=== PATIENT | female | born 1990 | race Caucasian/White ===

== ENCOUNTER 2017-09-01 06:47 | Day surgery (SDC) | payer BC ==
[~2017-09-01 06:47] MED LIST: Lactated Ringers 1,000 ML IV SCH; Lidocaine 1%/Sod Bicarbonate in NS 8.4% 1 ML Syringe PRN; Sodium Chloride 0.9% 10 ML Syringe FLUSH PRN
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
[2017-09-01] MEDS ORDERED: Lidocaine 1% 4 ML ONE (07:20)
[2017-09-01] MEDS ORDERED: Ketorolac 30 MG/ML SDV ONE (07:20)
[2017-09-01] MEDS ORDERED: Dexamethasone 4 MG/ML SDV ONE (07:20)
[2017-09-01] MEDS ORDERED: Ondansetron 4 MG/2 ML SDV ONE (07:20)
[2017-09-01] MEDS ORDERED: ceFAZolin 1 GM Vial ONE (07:20)
[2017-09-01] MEDS ORDERED: fentaNYL 100 MCG/2 ML SDV ONE (07:21)
[2017-09-01] MEDS ORDERED: Midazolam 1 MG/ML 2 ML SDV ONE (07:21)
[2017-09-01] MEDS ORDERED: Propofol 200 MG/20 ML SDV ONE ×2 (07:21→08:10)
[2017-09-01] MEDS ORDERED: Ondansetron 4 MG/2 ML SDV IVPUSH PRN ×2 (08:11→10:01)
[2017-09-01] MEDS ORDERED: fentaNYL 100 MCG/2 ML SDV IVPUSH PRN (08:11)
[2017-09-01] MEDS ORDERED: Lactated Ringers 1,000 ML ONE (08:21)
--- NOTE | 2017-09-01 08:40 | PCM.POSTAN ---
POST ANESTHESIA ASSESSMENT - MENTAL STATUS Mental Status: Alert - VITAL SIGNS Pulse Rate: 91 SaO2: 96 Resp Rate: 13 Blood Pressure: 105/69 Temperature: 36.5 C - RESPIRATORY Respiratory Status: Respiratory Rate WNL, Airway Patent, O2 Saturation Stable, Supplemental Oxygen - CARDIOVASCULAR CV Status: Pulse Rate WNL, Blood Pressure Stable - GASTROINTESTINAL GI Status: No Symptoms - POST OP HYDRATION Hydration Status: Adequate & Stable
--- NOTE | 2017-09-01 09:12 | PCM48HPAN ---
Post Anesthesia Note - EVALUATION WITHIN 48HRS OF ANESTHETIC Vital Signs in Normal Range: Yes Patient Participated in Evaluation: Yes Respiratory Function Stable: Yes Airway Patent: Yes Cardiovascular Function Stable: Yes Hydration Status Stable: Yes Pain Control Satisfactory: Yes Nausea and Vomiting Control Satisfactory: Yes Mental Status Recovered: Yes
[2017-09-01 09:38] VITALS: BP 129/74
--- NOTE | 2017-09-01 10:08 | PCM.OPNOTE ---
- General Post-Op/Procedure Note Date of Surgery/Procedure: 09/01/17 Operative Procedure(s): Hysteroscopy, dilation and curettage Findings: Uterus sounded to approximately 10-1/2 cm. There were at least 2 small polypoid structures in the left cornual area of the uterus. There was a lot of wispy type of endometrial projections throughout the uterus. Both the right and left tubal ostia were visualized. Uterus is upper limits normal size, freely mobile on bimanual exam. No adnexal abnormalities were noted. Pre Op Diagnosis: 1. Menorrhagia. 2. Abnormal uterine bleeding. 3. Irregular uterine bleeding. 4. Thickened endometrium Post-Op Diagnosis: Same Anesthesia Technique: General LMA Primary Surgeon: Shaquille Mccann Fluid Replacement, Intraop: 600 EBL in mLs: 5 Complications: None Condition: Good Free Text/Narrative:: Intake & Output 08/31/17 09/01/17 09/01/17 22:59 06:59 14:59 Intake Total 350 Balance 350 Surgery duration 11 minutes Procedure: The patient is taking the operative placed in a supine position on the operating table. She received 2 g of Ancef preoperatively for infection prophylaxis and had sequential compression stockings in place for DVT prophylaxis. Patient was given general anesthesia and an LMA was placed for ventilation. She is placed in a dorsal lithotomy position and prepped and draped in usual fashion. An exam under anesthesia was performed. Findings as described above. A weighted speculum was placed in the vagina. Cervix is visualized. It was grasped anteriorly with a single-tooth tenaculum. Uterus was then sounded to a depth of 10-1/2 cm. It is from the anterior, mid position. The cervix was dilated to entrance of a 5 mm 30 rigid hysteroscope. This was placed without problem and normal saline was used as a distending medium. The perimetria cavity was visualized. Findings as described above. Decision was made to proceed with polypectomy. Polyp forceps was introduced and polyps were removed. After this is performed a D&C was performed. Moderate amount tissue was obtained. Minimal bleeding was encountered. Hysteroscope was then placed back into the endometrial cavity. Blood was flushed out and the findings were consistent relatively normal-appearing endometrial cavity. At this point the scope was removed. The vagina was cleared of old blood, the cervix was released and the weighted speculum was removed. Patient was returned to supine position and awakened from general anesthesia. She tolerated the procedure well and operating room in good condition.
== END 2017-09-01 10:20 | disposition home or self-care (01) ==
LOC: JD.SDS 06:47
PROVIDERS: ATTEND Obstetrics & Gynecology
DX: N84.0 Polyp of corpus uteri (principal); N71.1 Chronic inflammatory disease of uterus; Z88.8 Allergy status to other drugs, medicaments and biological substances; Z91.018 Allergy to other foods; Z91.09 Other allergy status, other than to drugs and biological substances; J30.81 Allergic rhinitis due to animal (cat) (dog) hair and dander; F32.89 Other specified depressive episodes; K21.9 Gastro-esophageal reflux disease without esophagitis; Z79.84 Long term (current) use of oral hypoglycemic drugs; Z79.899 Other long term (current) drug therapy; Z98.890 Other specified postprocedural states
CPT/HCPCS: 58558; 81025; J0690; J1100; J1885; J2250; J2405; J3010; J7120; 00952; J2704

== ENCOUNTER 2019-09-27 09:24 | Day surgery (SDC) | payer BC ==
[~2019-09-27 09:24] MED LIST changes: +FLU Vacc QS2019-20(6MOS+)/PF 60 MCG/0.5 ML SYRINGE IM ONE; +Lidocaine 1%/Sod Bicarbonate in NS 8.4% 1 ML Syringe IDERM PRN; -Lidocaine 1%/Sod Bicarbonate in NS 8.4% 1 ML Syringe PRN
[2019-09-27] MEDS ORDERED: Lidocaine 1% 4 ML ONE (09:40)
[2019-09-27] MEDS ORDERED: Ondansetron 4 MG/2 ML SDV ONE (09:40)
[2019-09-27] MEDS ORDERED: Midazolam 1 MG/ML 2 ML SDV ONE (09:41)
[2019-09-27] MEDS ORDERED: fentaNYL 250 MCG/5 ML SDV ONE (09:41)
[2019-09-27] MEDS ORDERED: Propofol 200 MG/20 ML SDV ONE (09:41)
--- NOTE | 2019-09-27 09:57 | PCM.PREANE ---
Preanesthetic Assessment - Procedure Proposed Procedure: d and c - Anesthesia/Transfusion/Family Hx Anesthesia History: Prior Anesthesia Without Reaction Family History of Anesthesia Reaction: No Transfusion History: No Prior Transfusion(s) Intubation History: Unknown - Review of Systems General: No Symptoms Pulmonary: Cough (has a cold- congested cough) Cardiovascular: No Symptoms Gastrointestinal: No Symptoms Neurological: No Symptoms Other: Reports: Anxiety - Physical Assessment NPO Status Date: 09/26/19 NPO Status Time: 20:30 Vital Signs: Last Vital Signs Temp 98.7 F 09/27/19 09:30 Pulse 107 H 09/27/19 09:30 Resp 16 09/27/19 09:30 BP 120/76 09/27/19 09:30 Pulse Ox 97 09/27/19 09:30 Height: 5 ft 8 in Weight: 88.451 kg ASA Class: 2 Mental Status: Alert & Oriented x3 Airway Class: Mallampati = 1 Dentition: Reports: Normal Dentition Thyro-Mental Finger Breadths: 3 Mouth Opening Finger Breadths: 3 ROM/Head Extension: Full Lungs: Clear to Auscultation, Normal Respiratory Effort - Allergies Allergies/Adverse Reactions: Allergies Allergy/AdvReac Type Severity Reaction Status Date / Time hydromorphone HCl Allergy Severe Anaphylactic Verified 09/26/19 11:24 [From Dilaudid] Shock adhesive Allergy Hives Verified 09/26/19 11:24 cat dander Allergy Swelling Verified 09/26/19 11:24 garlic Allergy Other Verified 09/26/19 11:24 metals Allergy Rash Uncoded 09/26/19 11:24 - Blood Blood Available: No - Acknowledgements Anesthesia Type Planned: General Anesthesia, MAC Pt an Appropriate Candidate for the Planned Anesthesia: Yes Alternatives and Risks of Anesthesia Discussed w Pt/Guardian: Yes Pt/Guardian Understands and Agrees with Anesthesia Plan: Yes PreAnesthesia Questionnaire HEENT History: Reports: Allergic Rhinitis Other HEENT History: wears glasses Other Cardiovascular History: racing heart, tachycardia-usually tachy rate Respiratory History: Reports: None (has a cold now- 3 weeks ago), Other (See Below) Gastrointestinal History: Reports: GERD, Hemorrhoids Other Gastrointestinal History: Issues with gallbladder. Patient states diarrhea is from the Metformin. 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 Other OB/BYN History: menorrhagia, irregular menses, thickened endometrium, cervix abnormality, dysmenorrhea, polycystic ovaries, infertility, puerperal endometriosis, diagnostic laparoscopy Musculoskeletal History: Reports: Arthritis, Other (See Below) Other Musculoskeletal History: neck arthritis Neurological History: Reports: Headaches, Chronic Psychiatric History: Reports: Anxiety, Depression, Other (See Below) Other Psychiatric History: fatigue Endocrine/Metabolic History: Reports: None Hematologic History: Reports: None Immunologic History: Reports: None Oncologic (Cancer) History: Reports: None Dermatologic History: Reports: Other (See Below) Other Dermatologic History: brittle nails - Past Surgical History Head Surgeries/Procedures: Reports: None HEENT Surgical History: Reports: Myringotomy w Tube(s), Oral Surgery Cardiovascular Surgical History: Reports: None Respiratory Surgical History: Reports: None GI Surgical History: Reports: EGD Female Surgical History: Reports: D&C, Other (See Below) (laparaoscopy) Male Surgical History: Reports: None Endocrine Surgical History: Reports: None Neurological Surgical History: Reports: None Musculoskeletal Surgical History: Reports: None Oncologic Surgical History: Reports: None Dermatological Surgical History: Reports: None - SUBSTANCE USE Smoking Status *Q: Never Smoker Tobacco Use Within Last Twelve Months: No Second Hand Smoke Exposure: No Days Per Week of Alcohol Use: 0 Recreational Drug Use History: No - HOME MEDS Home Medications: Home Meds Vits #93/Iron Fum/FA [ Formula Tablet] 1 tab PO DAILY 08/31/17 [History] metFORMIN HCl [Metformin HCl] 500 mg PO TID 08/31/17 [History] - CURRENT (IN HOUSE) MEDS Current Meds: Current Medications Lactated Ringer's (Ringers, Lactated) 1,000 mls @ 125 mls/hr IV ASDIRECTED ROBBI Stop: 09/27/19 23:00 Lidocaine/Sodium Bicarbonate (Buffered Lidocaine 1% In Ns 8.4%) 0.25 ml IDERM ONETIME PRN PRN Reason: Prior to IV Start Stop: 09/27/19 18:00 Sodium Chloride (Saline Flush) 10 ml FLUSH ASDIRECTED PRN PRN Reason: Keep Vein Open Stop: 09/27/19 18:00 Discontinued Medications Fentanyl (Sublimaze) Confirm Administered Dose 250 mcg .ROUTE .STK-MED ONE Stop: 09/27/19 09:42 Lidocaine HCl (Xylocaine-Mpf 1%) Confirm Administered Dose 4 mls @ as directed .ROUTE .STK-MED ONE Stop: 09/27/19 09:41 Influenza Virus Vaccine (Pharmacy To Dose - Influenza Vaccine) 1 each IM ONETIME ROBBI Influenza Virus Vaccine (Pharmacy To Dose - Influenza Vaccine) 1 each IM ONETIME ROBBI Influenza Virus Vaccine (Fluzone Quad 6630-2168 Syringe) 60 mcg IM .ONCE ONE Stop: 09/27/19 09:01 Midazolam HCl (Versed 1 Mg/Ml) Confirm Administered Dose 2 mg .ROUTE .STK-MED ONE Stop: 09/27/19 09:42 Ondansetron HCl (Zofran) Confirm Administered Dose 4 mg .ROUTE .STK-MED ONE Stop: 09/27/19 09:41 Propofol (Diprivan 20 Ml) Confirm Administered Dose 200 mg .ROUTE .STK-MED ONE Stop: 09/27/19 09:42
[2019-09-27] MEDS ORDERED: Albuterol 0.083% 2.5 MG/3 ML Neb Soln NEB ONE (10:32)
[2019-09-27] MEDS ORDERED: Ibuprofen 600 MG Tab PO PRN (11:52)
--- NOTE | 2019-09-27 11:56 | PCM.OPNOTE ---
- General Post-Op/Procedure Note Date of Surgery/Procedure: 09/27/19 Operative Procedure(s): Dilation and suction curettage Findings: Uterus sounded to 8.5 cm. Tissue within the endometrial cavity is consistent with products of conception. No other abnormalities are noted. Pre Op Diagnosis: Missed Post-Op Diagnosis: Same Anesthesia Technique: [facility] [place] Primary Surgeon: Shaquille Mccann Secondary Surgeon: Mika Randolph Anesthesia Provider: Zaheer Ayala Pathology: Endometrial curettings consistent with products of conception EBL in mLs: 25 Complications: None Condition: Good Free Text/Narrative:: Surgery duration: 7 minutes The patient was taken to the operating room and placed in a supine position operating table. She received 2 g of Ancef preoperatively for infection prophylaxis and had sequential compression stockings in place for DVT prophylaxis. After adequate general LMA anesthesia patient was placed in a dorsal lithotomy position. A weighted speculum was placed in the vagina. Cervix is found to be dilated to approximately 7 mm. Uterus was sounded to approximately 8.5 cm. It was found to be anterior and mid position. An 7 mm suction curette was then introduced in routine fashion the endometrial cavity was evacuated. Moderate amount tissue was obtained. Findings consistent with products of conception. A medium size sharp curet was introduced and very careful fashion the endometrial cavity was curetted. It was be clear of any further tissue. The suction curette was then reintroduced and small and blood was removed. No further tissue was removed. This point the D&C was discontinued. The single-toothed tenaculum used to stabilize the anterior lip the cervix was removed. Blood was removed from the vagina with a stick sponge and the weighted speculum was removed from the vagina. The patient was awakened from MAC anesthesia. The patient was discharged from the operating room in good condition.
[2019-09-27] MEDS ORDERED: fentaNYL 100 MCG/2 ML SDV IVPUSH PRN (12:01)
--- NOTE | 2019-09-27 12:03 | PCM48HPAN ---
Post Anesthesia Note - EVALUATION WITHIN 48HRS OF ANESTHETIC Vital Signs in Normal Range: Yes Patient Participated in Evaluation: Yes Respiratory Function Stable: Yes Airway Patent: Yes Cardiovascular Function Stable: Yes Hydration Status Stable: Yes Pain Control Satisfactory: Yes Nausea and Vomiting Control Satisfactory: Yes Mental Status Recovered: Yes Vital Signs: Last Vital Signs Temp 98.7 F 09/27/19 09:30 Pulse 107 H 09/27/19 09:30 Resp 16 09/27/19 09:30 BP 120/76 09/27/19 09:30 Pulse Ox 100 09/27/19 10:33 1156 89 16 98.9 99% 119/86
[2019-09-27 12:28] VITALS: BP 110/67; PULSE 85
== END 2019-09-27 12:41 | disposition home or self-care (01) ==
LOC: JD.SDS 09:24
PROVIDERS: ATTEND Obstetrics & Gynecology
DX: O02.1 Missed abortion (principal); E28.2 Polycystic ovarian syndrome; K21.9 Gastro-esophageal reflux disease without esophagitis; F41.9 Anxiety disorder, unspecified; F32.9 Major depressive disorder, single episode, unspecified; M19.90 Unspecified osteoarthritis, unspecified site; Z88.5 Allergy status to narcotic agent; Z91.02 Food additives allergy status; Z91.048 Other nonmedicinal substance allergy status; Z91.09 Other allergy status, other than to drugs and biological substances; Z79.84 Long term (current) use of oral hypoglycemic drugs; Z79.899 Other long term (current) drug therapy
CPT/HCPCS: 36415; 59820; 85025; 94640; J2001; J2250; J2405; J2704; J3010; J7120; 01965

== ENCOUNTER 2021-02-11 07:08 | Inpatient (IN) | payer BC ==
[2021-02-11] MEDS ORDERED: ePHEDrine 50 MG/ML SDV IVPUSH PRN ×3 (07:35→22:18)
[2021-02-11] MEDS ORDERED: fentaNYL 100 MCG/2 ML SDV EPIDUR PRN (07:35)
[2021-02-11] MEDS ORDERED: Ondansetron 4 MG/2 ML SDV IVPUSH PRN ×2 (07:35→19:29)
--- NOTE | 2021-02-11 07:37 | PCM.PREANE ---
Preanesthetic Assessment - Procedure Proposed Procedure: Epidural - Anesthesia/Transfusion/Family Hx Anesthesia History: Prior Anesthesia Without Reaction Family History of Anesthesia Reaction: No Transfusion History: No Prior Transfusion(s) Intubation History: Unknown - Review of Systems General: No Symptoms Pulmonary: No Symptoms Cardiovascular: No Symptoms (history of increased HR. runs 120's) Gastrointestinal: No Symptoms (GERD), Diarrhea Neurological: No Symptoms (chronic lower back pain /10.), Headache (history of migraines) Other: Reports: Sinus Problem (allergic rhinitis), Neck Pain (Neck arthritis history of:), Depression, Anxiety - Physical Assessment NPO Status Date: 02/11/21 NPO Status Time: 06:45 Vital Signs: HR:119 Sat:99% B/P:120/78 Temp:98.3 Resp:20 Height: 1.73 m Weight: 100.153 kg ASA Class: 2 Mental Status: Alert & Oriented x3 Airway Class: Mallampati = 2 Dentition: Reports: Normal Dentition, Caries Thyro-Mental Finger Breadths: 3 Mouth Opening Finger Breadths: 3 ROM/Head Extension: Full Lungs: Clear to Auscultation, Normal Respiratory Effort Cardiovascular: Regular Rate, Regular Rhythm, No Murmurs - Lab Values: All labs reviewed and noted and within acceptable ranges to proceed with epidural if desired. - Allergies Allergies/Adverse Reactions: Allergies Allergy/AdvReac Type Severity Reaction Status Date / Time hydromorphone HCl Allergy Severe Anaphylactic Verified 09/26/19 11:24 [From Dilaudid] Shock adhesive Allergy Hives Verified 09/26/19 11:24 cat dander Allergy Swelling Verified 09/26/19 11:24 garlic Allergy Other Verified 09/26/19 11:24 metals Allergy Rash Uncoded 09/26/19 11:24 - Anesthesia Plan Pre-Op Medication Ordered: None - Acknowledgements Anesthesia Type Planned: Epidural Pt an Appropriate Candidate for the Planned Anesthesia: Yes Alternatives and Risks of Anesthesia Discussed w Pt/Guardian: Yes Pt/Guardian Understands and Agrees with Anesthesia Plan: Yes PreAnesthesia Questionnaire HEENT History: Reports: Allergic Rhinitis Other HEENT History: wears glasses Other Cardiovascular History: racing heart, tachycardia-usually tachy rate Respiratory History: Reports: None (has a cold now- 3 weeks ago), Other (See Below) Gastrointestinal History: Reports: GERD, Hemorrhoids Other Gastrointestinal History: Issues with gallbladder. Patient states diarrhea is from the Metformin. 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 Other OB/BYN History: menorrhagia, irregular menses, thickened endometrium, cervix abnormality, dysmenorrhea, polycystic ovaries, infertility, puerperal endometriosis, diagnostic laparoscopy Musculoskeletal History: Reports: Arthritis, Other (See Below) Other Musculoskeletal History: neck arthritis Neurological History: Reports: Headaches, Chronic Psychiatric History: Reports: Anxiety, Depression, Other (See Below) Other Psychiatric History: fatigue Endocrine/Metabolic History: Reports: None Hematologic History: Reports: None Immunologic History: Reports: None Oncologic (Cancer) History: Reports: None Dermatologic History: Reports: Other (See Below) Other Dermatologic History: brittle nails - Past Surgical History Head Surgeries/Procedures: Reports: None HEENT Surgical History: Reports: Myringotomy w Tube(s), Oral Surgery Cardiovascular Surgical History: Reports: None Respiratory Surgical History: Reports: None GI Surgical History: Reports: EGD Female Surgical History: Reports: D&C, Other (See Below) (laparaoscopy) Male Surgical History: Reports: None Endocrine Surgical History: Reports: None Neurological Surgical History: Reports: None Musculoskeletal Surgical History: Reports: None Oncologic Surgical History: Reports: None Dermatological Surgical History: Reports: None - HOME MEDS Home Medications: Home Meds Vits #93/Iron Fum/FA [ Formula Tablet] 1 tab PO DAILY 08/31/17 [History] Ibuprofen [Motrin] 600 mg PO Q4H PRN tablet 09/27/19 [Rx]
[2021-02-11] MEDS ORDERED: Sodium Chloride 0.9% 10 ML Syringe FLUSH PRN ×2 (07:39→19:07)
[2021-02-11] MEDS ORDERED: Nalbuphine 10 MG/1 ML Vial IVPUSH PRN (07:39)
[2021-02-11] MEDS ORDERED: Lidocaine 1% 50 ML MDV INJECT PRN (07:39)
[2021-02-11] MEDS ORDERED: Oxytocin/Lactated Ringers 10 UNIT/1,000 ML BAG IV SCH ×4 (07:45→22:18)
[2021-02-11] MEDS ORDERED: Bupivacaine/fentaNYL/NS 100 ML Bag EPIDUR SCH (07:45)
--- NOTE | 2021-02-11 08:01 | PCM.LDHP ---
<Riccardo Guillory - Last Filed: 02/11/21 08:53> L&D History of Present Illness - General Date of Service: 02/11/21 Admit Problem/Dx: Patient Status Order with Admit Dx/Problem 02/11/21 07:39 Patient Status [ADT] Routine Admission Diagnosis/Problem Admission Diagnosis/Problem Source of Information: Patient History Limitations: Reports: No Limitations - History of Present Illness Introduction:: Patient is a 30 year old GBS negative x 1 who present today at 39- 0 weeks gestational age (NOY 02/18/21) for induction of labor. She denies any regular contractions, leaking of fluid, vaginal bleeding or changes in her discharge. She reports good movement. Present Illness Comments:: Patient is a 30 year old GBS negative x 1 who present today at 39- 0 weeks gestational age (NOY 02/18/21) based on first trimester US for induction of labor. Patient has received routine care with Dr. Mccann,. She was evaluated on 02/08/21 for tachycardia on routine examination in the office; she underwent BPP which was 07/04 but demonstrated an estimated weight of 4986 g (11lbs 0 ounces, > 97% percentile). After long discussion of risks and benefits of vs on 02/08/21 the patient would like to proceed with induction to labor and was scheduled for today. She does have a history of depression and requests to be started on Escitalopram immediately following delivery. No other known complications during her . She received her flu vaccine 09/09/20, Tdap 12/22/20. OBGYN History 10/2014: SAB at 6 weeks gestational age 0302/25/2016: of female weighing 8lbs 0 ounces at 40-4 weeks gestational age - [place]. Initially was a twin with loss at 6 weeks. 09/27/2020: SAB at 6 weeks with D&C G4: current labs: Blood type: A+ Antibody screen: Negative Rubella status: immune Hepatitis B surface antigen: negative RPR: negative HIV: negative Gonorrhea: negative Chlamydia: negative Anatomy US: [place] IUP with normal growth, ESCOBAR, placental location and anatomy. US in third trimester demonstrated growth at 95%, 92% and 90% percentile at 31-5, 33-0 and 37-2 weeks gestational age. One hour glucose tolerance test: 136 Three hour glucose tolerance test: 93 106 181 120 Second trimester hemoglobin: 11.7 Platelets: 206,000 GBS status: negative - Related Data Allergies/Adverse Reactions: Allergies Allergy/AdvReac Type Severity Reaction Status Date / Time hydromorphone HCl Allergy Severe Anaphylactic Verified 09/26/19 11:24 [From Dilaudid] Shock adhesive Allergy Hives Verified 09/26/19 11:24 cat dander Allergy Swelling Verified 09/26/19 11:24 garlic Allergy Other Verified 09/26/19 11:24 metals Allergy Rash Uncoded 09/26/19 11:24 Home Medications: Home Meds Vits #93/Iron Fum/FA [ Formula Tablet] 1 tab PO DAILY 08/31/17 [History] Ibuprofen [Motrin] 600 mg PO Q4H PRN tablet 09/27/19 [Rx] Past Medical History HEENT History: Reports: Allergic Rhinitis Other HEENT History: wears glasses Other Cardiovascular History: racing heart, tachycardia-usually tachy rate Respiratory History: Reports: None (has a cold now- 3 weeks ago), Other (See Below) Gastrointestinal History: Reports: GERD, Hemorrhoids Other Gastrointestinal History: Issues with gallbladder. Patient states diarrhea is from the Metformin. Genitourinary History: Reports: UTI, Recurrent, Other (See Below) PROCUREMENT BUYER History: Reports: Polycystic Ovaries Other OB/BYN History: menorrhagia, irregular menses, thickened endometrium, cervix abnormality, dysmenorrhea, polycystic ovaries, infertility, puerperal endometriosis, diagnostic laparoscopy Musculoskeletal History: Reports: Arthritis, Other (See Below) Other Musculoskeletal History: neck arthritis Neurological History: Reports: Headaches, Chronic Psychiatric History: Reports: Anxiety, Depression, Other (See Below) Other Psychiatric History: fatigue Endocrine/Metabolic History: Reports: None Hematologic History: Reports: None Immunologic History: Reports: None Oncologic (Cancer) History: Reports: None Dermatologic History: Reports: Other (See Below) Other Dermatologic History: brittle nails - Past Surgical History Head Surgeries/Procedures: Reports: None HEENT Surgical History: Reports: Myringotomy w Tube(s), Oral Surgery Cardiovascular Surgical History: Reports: None Respiratory Surgical History: Reports: None GI Surgical History: Reports: EGD Female Surgical History: Reports: D&C, Other (See Below) (laparaoscopy) Male Surgical History: Reports: None Endocrine Surgical History: Reports: None Neurological Surgical History: Reports: None Musculoskeletal Surgical History: Reports: None Oncologic Surgical History: Reports: None Dermatological Surgical History: Reports: None Social & Family History - Caffeine Use Caffeine Use: Reports: Coffee H&P Review of Systems - Review of Systems: Review Of Systems: See Below General: Reports: No Symptoms HEENT: Reports: No Symptoms Pulmonary: Reports: No Symptoms Cardiovascular: Reports: No Symptoms Gastrointestinal: Reports: No Symptoms Genitourinary: Reports: No Symptoms Musculoskeletal: Reports: No Symptoms Skin: Reports: No Symptoms Psychiatric: Reports: No Symptoms Neurological: Reports: No Symptoms L&D Exam - Exam Exam: See Below - Vital Signs Weight: 100.153 kg - OB Specific Contraction Intensity: Mild Movement: Active Heart Tones: Present - Exam General: Alert, Oriented HEENT: Conjunctiva Clear, EOMI Lungs: Clear to Auscultation, Normal Respiratory Effort Cardiovascular: Regular Rhythm, Tachycardia GI/Abdominal Exam: Normal Bowel Sounds - Problem List (1) 39 weeks gestation of SNOMED Code(s): 27315185 ICD Code: Z3A.39 - 39 WEEKS GESTATION OF Status: Acute Current Visit: Yes (2) macrosomia SNOMED Code(s): 22179049 ICD Code: O36.60X0 - MATERNAL CARE FOR EXCESS GROWTH, UNSP TRIMESTER, UNSP Status: Acute Current Visit: Yes (3) Anxiety SNOMED Code(s): 79166779 ICD Code: F41.9 - ANXIETY DISORDER, UNSPECIFIED Status: Acute Current Visit: Yes (4) Rubella immune SNOMED Code(s): 864811605 ICD Code: Z78.9 - OTHER SPECIFIED HEALTH STATUS Status: Acute Current Visit: Yes Problem List Initiated/Reviewed/Updated: Yes Orders Last 24hrs: Active Orders 24 hr Category Date Time Status Patient Status [ADT] Routine ADT 02/11/21 07:39 Active Activity as Tolerated [RC] PFP Care 02/11/21 07:39 Active Communication Order [RC] ASDIRECTED Care 02/11/21 07:39 Active Heart Tones [RC] ASDIRECTED Care 02/11/21 07:40 Active Non Stress Test [RC] PER UNIT ROUTINE Care 02/11/21 07:39 Active Notify Provider [RC] ASDIRECTED Care 02/11/21 07:35 Active Notify Provider [RC] PFP Care 02/11/21 07:39 Active Notify Provider [RC] PRN Care 02/11/21 07:39 Active Oxygen Therapy [RC] ASDIRECTED Care 02/11/21 07:35 Active Peripheral IV Care [RC] . DIRECTED Care 02/11/21 07:40 Active Pulse Oximetry [RC] ASDIRECTED Care 02/11/21 07:35 Active Urinary Catheter Assessment [RC] ASDIRECTED Care 02/11/21 07:39 Active Vital Signs [RC] PER UNIT ROUTINE Care 02/11/21 07:39 Active Regular Diet [DIET] Diet 02/11/21 Breakfast Active BLOOD BANK HOLD SPECIMEN [BBK] Routine Lab 02/11/21 07:39 Ordered CBC WITH AUTO DIFF [HEME] Routine Lab 02/11/21 07:39 Ordered CORONAVIRUS COVID-19 JOSSUE [MOLEC] Stat Lab 02/11/21 07:43 Ordered RAPID PLASMA REAGIN,RPR [CHEM] Routine Lab 02/11/21 07:39 Ordered Bupivacaine/fentaNYL/NS [fentaNYL/Bupivacaine/NS 2 MCG- Med 02/11/21 07:45 Active 0.125% 100 ML] 100 ml EPIDUR ASDIRECTED Lactated Ringers [Ringers, Lactated] 1,000 ml Med 02/11/21 07:45 Active IV ASDIRECTED Lidocaine 1% [Xylocaine 1%] Med 02/11/21 07:39 Active 50 ml INJECT ONETIME PRN Nalbuphine [Nubain] Med 02/11/21 07:39 Ordered 10 mg IVPUSH Q2H PRN Ondansetron [Zofran] Med 02/11/21 07:35 Active 4 mg IVPUSH ONETIME PRN Oxytocin/Lactated Ringers [Pitocin in LR 10 Units/1,000 Med 02/11/21 07:45 Ordered ML] 10 unit in 1,000 ml IV .CONTINUOUS Oxytocin/Lactated Ringers [Pitocin in LR 10 Units/1,000 Med 02/11/21 07:45 Ordered ML] 10 unit in 1,000 ml IV TITRATE Sodium Chloride 0.9% [Saline Flush] Med 02/11/21 07:39 Ordered 10 ml FLUSH ASDIRECTED PRN ePHEDrine [ePHEDrine sulfate] Med 02/11/21 07:35 Active 5 mg IVPUSH ASDIRECTED PRN fentaNYL [Sublimaze] Med 02/11/21 07:35 Active 100 mcg EPIDUR Q3H PRN Electronic Heart Tones Ext w TOCO [WOMSER] Oth 02/11/21 07:39 Ordered Routine Electronic Heart Tones Internal [WOMSER] Per Unit Oth 02/11/21 07:39 Ordered Routine Peripheral IV Insertion Adult [OM.PC] Routine Oth 02/11/21 07:39 Ordered Resuscitation Status Routine Resus Stat 02/11/21 07:39 Ordered Medication Orders Ephedrine Sulfate (Ephedrine 50 Mg/Ml Sdv) 5 mg IVPUSH ASDIRECTED PRN PRN Reason: Hypotension Fentanyl (Fentanyl 100 Mcg/2 Ml Sdv) 100 mcg EPIDUR Q3H PRN PRN Reason: Pain Fentanyl/Bupivacaine HCl (Bupivacaine/Fentanyl/Ns 100 Ml Bag) 100 ml EPIDUR ASDIRECTED ROBBI Lactated Ringer's (Ringers, Lactated) 1,000 mls @ 100 mls/hr IV ASDIRECTED ROBBI Oxytocin/Lactated Ringer's (Pitocin In Lr 10 Units/1,000 Ml) 10 unit in 1,000 mls @ 500 mls/hr IV .CONTINUOUS ROBBI Oxytocin/Lactated Ringer's (Pitocin In Lr 10 Units/1,000 Ml) 10 unit in 1,000 mls @ 12 mls/hr IV TITRATE ROBBI; Protocol Lidocaine HCl (Lidocaine 1% 50 Ml Mdv) 50 ml INJECT ONETIME PRN PRN Reason: Breakthrough Pain Nalbuphine HCl (Nalbuphine 10 Mg/1 Ml Vial) 10 mg IVPUSH Q2H PRN PRN Reason: Pain Ondansetron HCl (Ondansetron 4 Mg/2 Ml Sdv) 4 mg IVPUSH ONETIME PRN PRN Reason: Nausea/Vomiting Sodium Chloride (Sodium Chloride 0.9% 10 Ml Syringe) 10 ml FLUSH ASDIRECTED PRN PRN Reason: Keep Vein Open Assessment/Plan Comment:: Patient is a 30 year old GBS negative x 1 who present today at 39- 0 weeks gestational age (NOY 02/18/21) for induction of labor. She denies any regular contractions, leaking of fluid, vaginal bleeding or changes in her dis charge. She reports good movement. Evaluation on 02/08/21 for tachycardia demonstrated BPP 8/8 but estimated weight of 4986 g (11 lbs, 0 oz), which is > 97th percentile. After long discussion with the patient, she was scheduled for induction at 39-0 weeks, which is today. Risks and benefits of vaginal delivery vs were discussed at length with the patient give the estimated weight; including the possibility that a may be indicated for distress, failure to progress or other issues. The patient would like to proceed with attempted vaginal delivery. AROM was performed with moderate meconium staining. Mom and baby tolerated the procedure well. 1. A+ with negative antibody screen 2. Rubella Immune 3. GBS negative 4. AROM with moderate meconium staining 5. Maternal history of anxiety, depression - start Escitalopram following delivery per patient request 9. Induction of labor with AROM, augmentation as indicated. 10. Continuous monitoring 12. Small amounts of regular diet 14. Activity as tolerated 13. Would like an epidural, able to received when she is ready 15. Anticipate vaginal delivery unless otherwise indicated <Jose Delatorre - Last Filed: 02/11/21 10:12> L&D History of Present Illness - General Admit Problem/Dx: Patient Status Order with Admit Dx/Problem 02/11/21 07:39 Patient Status [ADT] Routine 02/11/21 08:47 Admission Status [Patient Status] [ADT] Routine Admission Diagnosis/Problem Admission Diagnosis/Problem L&D Exam - Vital Signs Vital Signs: Last Vital Signs Temp 36.8 C 02/11/21 07:45 Pulse 119 H 02/11/21 09:01 Resp BP 110/76 02/11/21 09:01 Pulse Ox - OB Specific Contraction Duration (sec): 30-60 Contraction Frequency (min): 3-6 Heart Tones per Min: 150 (+15 x 15 accelerations, no decelerations) Heart Rate (FHR) Variability: Moderate (6-25 bmp) Presentation: Vertex Estimated Weight: 9-10 lbs by Marga - Linares Score Linares Score Cervix Position: Posterior Linares Score Consistency: Soft Linares Score Effacement: 51-70% (70%) Linares Score Dilation: 3-4 cm (4 cm) Linares Score 's Station: -3 Linares Score Total: 6 - Exam GI/Abdominal Exam: Soft, Non-Tender, No Distention, Other (Gravid). No: Guard ing, Rigid, Rebound Genitourinary: Normal external exam, Other (Artificial rupture membranes performed with [place] with return of moderate amount of moderate meconium stained fluid. Mother and tolerated procedure without difficulty.) Skin: Warm, Dry, Intact Psychiatric: Alert, Normal Affect, Normal Mood - Patient Data Lab Results Last 24 hrs: Laboratory Results - last 24 hr 02/11/21 02/11/21 02/11/21 Range/Units 07:50 08:33 08:33 WBC 6.81 (3.98-10.04) K/mm3 RBC 4.12 (3.98-5.22) M/mm3 Hgb 13.0 (11.2-15.7) gm/dl Hct 38.5 (34.1-44.9) % MCV 93.4 (79.4-94.8) fl MCH 31.6 (25.6-32.2) pg MCHC 33.8 (32.2-35.5) g/dl RDW Std Deviation 49.1 H (36.4-46.3) fL Plt Count 152 L (182-369) K/mm3 MPV 10.0 (9.4-12.3) fl Neut % (Auto) 67.6 (34.0-71.1) % Lymph % (Auto) 22.6 (19.3-51.7) % [place] % (Auto) 9.0 (4.7-12.5) % Eos % (Auto) 0.4 L (0.7-5.8) Baso % (Auto) 0.1 (0.1-1.2) % Neut # (Auto) 4.60 (1.56-6.13) K/mm3 Lymph # (Auto) 1.54 (1.18-3.74) K/mm3 [place] # (Auto) 0.61 H (0.24-0.36) K/mm3 Eos # (Auto) 0.03 L (0.04-0.36) K/mm3 Baso # (Auto) 0.01 (0.01-0.08) K/mm3 SARS-CoV-2 RNA (JOSSUE) Negative (NEGATIVE) Blood Type A POSITIVE Gel Antibody Screen Negative Result Diagrams: 02/11/21 08:33 Orders Last 24hrs: Active Orders 24 hr Category Date Time Status Admission Status [Patient Status] [ADT] Routine ADT 02/11/21 08:47 Active Activity as Tolerated [RC] PFP Care 02/11/21 07:39 Active Communication Order [RC] ASDIRECTED Care 02/11/21 07:39 Active Heart Tones [RC] ASDIRECTED Care 02/11/21 07:40 Active Non Stress Test [RC] PER UNIT ROUTINE Care 02/11/21 07:39 Active Notify Provider [RC] ASDIRECTED Care 02/11/21 07:35 Active Notify Provider [RC] PFP Care 02/11/21 07:39 Active Notify Provider [RC] PRN Care 02/11/21 07:39 Active Oxygen Therapy [RC] ASDIRECTED Care 02/11/21 07:35 Active Peripheral IV Care [RC] Q4HR Care 02/11/21 07:40 Active Pulse Oximetry [RC] ASDIRECTED Care 02/11/21 07:35 Active Urinary Catheter Assessment [RC] ASDIRECTED Care 02/11/21 07:39 Active Vital Signs [RC] PER UNIT ROUTINE Care 02/11/21 07:39 Active Regular Diet [DIET] Diet 02/11/21 Breakfast Active RAPID PLASMA REAGIN,RPR [CHEM] Routine Lab 02/11/21 08:33 Received Bupivacaine/fentaNYL/NS [fentaNYL/Bupivacaine/NS 2 MCG- Med 02/11/21 07:45 Active 0.125% 100 ML] 100 ml EPIDUR ASDIRECTED Lactated Ringers [Ringers, Lactated] 1,000 ml Med 02/11/21 07:45 Active IV ASDIRECTED Lidocaine 1% [Xylocaine 1%] Med 02/11/21 07:39 Active 50 ml INJECT ONETIME PRN Ondansetron [Zofran] Med 02/11/21 07:35 Active 4 mg IVPUSH ONETIME PRN Oxytocin/Lactated Ringers [Pitocin in LR 10 Units/1,000 Med 02/11/21 07:45 Active ML] 10 unit in 1,000 ml IV .CONTINUOUS Oxytocin/Lactated Ringers [Pitocin in LR 10 Units/1,000 Med 02/11/21 07:45 Active ML] 10 unit in 1,000 ml IV TITRATE Sodium Chloride 0.9% [Saline Flush] Med 02/11/21 07:39 Active 10 ml FLUSH ASDIRECTED PRN ePHEDrine [ePHEDrine sulfate] Med 02/11/21 07:35 Active 5 mg IVPUSH ASDIRECTED PRN fentaNYL [Sublimaze] Med 02/11/21 07:35 Active 100 mcg EPIDUR Q3H PRN Electronic Heart Tones Ext w TOCO [WOMSER] Oth 02/11/21 07:39 Ordered Routine Electronic Heart Tones Internal [WOMSER] Per Unit Oth 02/11/21 07:39 Ordered Routine Peripheral IV Insertion Adult [OM.PC] Routine Oth 02/11/21 07:39 Ordered Resuscitation Status Routine Resus Stat 02/11/21 07:39 Ordered Medication Orders Ephedrine Sulfate (Ephedrine 50 Mg/Ml Sdv) 5 mg IVPUSH ASDIRECTED PRN PRN Reason: Hypotension Fentanyl (Fentanyl 100 Mcg/2 Ml Sdv) 100 mcg EPIDUR Q3H PRN PRN Reason: Pain Fentanyl/Bupivacaine HCl (Bupivacaine/Fentanyl/Ns 100 Ml Bag) 100 ml EPIDUR ASDIRECTED ROBBI Lactated Ringer's (Ringers, Lactated) 1,000 mls @ 100 mls/hr IV ASDIRECTED ROBBI Oxytocin/Lactated Ringer's (Pitocin In Lr 10 Units/1,000 Ml) 10 unit in 1,000 mls @ 500 mls/hr IV .CONTINUOUS ROBBI Oxytocin/Lactated Ringer's (Pitocin In Lr 10 Units/1,000 Ml) 10 unit in 1,000 mls @ 12 mls/hr IV TITRATE ROBBI; Protocol Lidocaine HCl (Lidocaine 1% 50 Ml Mdv) 50 ml INJECT ONETIME PRN PRN Reason: Breakthrough Pain Ondansetron HCl (Ondansetron 4 Mg/2 Ml Sdv) 4 mg IVPUSH ONETIME PRN PRN Reason: Nausea/Vomiting Sodium Chloride (Sodium Chloride 0.9% 10 Ml Syringe) 10 ml FLUSH ASDIRECTED PRN PRN Reason: Keep Vein Open Assessment/Plan Comment:: I have seen and evaluated the patient with the student. I agree with the note as per above without any changes to the assessment or plan. Patient was counseled on risks of induction of labor and infant with suspected macrosomia with estimated weight of 4986 g at her ultrasound that was done on 02/08/2021. Patient desired to proceed with induction of labor. Type and screen performed with initial labs due to increased risk for need of section. We will plan for vaginal delivery unless otherwise indicated. Jose Delatorre MD 10:12 AM 02/11/2021
[2021-02-11] MEDS: Lactated Ringers 1,000 ML IV SCH ×3 (12:03→16:09)
[2021-02-11] MEDS ORDERED: diphenhydrAMINE 50 MG/ML SDV IVPUSH PRN ×3 (14:08→22:18)
[2021-02-11] MEDS ORDERED: Phenylephrine/Normal Saline 100 MCG/ML 10 ML Syringe ONE (17:00)
[2021-02-11] MEDS ORDERED: Bupivacaine 0.25% 10 ML SDV ONE (17:00)
--- NOTE | 2021-02-11 17:40 | PCM.PNLD ---
Labor Progress Note - VS & Meds Vital Signs: Last Vital Signs Temp 36.8 C 02/11/21 07:45 Pulse 95 02/11/21 15:30 Resp BP 96/52 L 02/11/21 15:30 Pulse Ox 98 02/11/21 12:47 Active Medications: Current Medications Diphenhydramine HCl (Diphenhydramine 50 Mg/Ml Sdv) 25 mg IVPUSH Q6H PRN PRN Reason: pruritis Ephedrine Sulfate (Ephedrine 50 Mg/Ml Sdv) 5 mg IVPUSH ASDIRECTED PRN PRN Reason: Hypotension Fentanyl (Fentanyl 100 Mcg/2 Ml Sdv) 100 mcg EPIDUR Q3H PRN PRN Reason: Pain Last Admin: 02/11/21 13:10 Dose: 100 mcg Documented by: Fentanyl/Bupivacaine HCl (Bupivacaine/Fentanyl/Ns 100 Ml Bag) 100 ml EPIDUR ASDIRECTED ROBBI Last Admin: 02/11/21 13:10 Dose: 100 ml Documented by: Lactated Ringer's (Ringers, Lactated) 1,000 mls @ 100 mls/hr IV ASDIRECTED ROBBI Last Admin: 02/11/21 16:09 Dose: 100 mls/hr Documented by: Oxytocin/Lactated Ringer's (Pitocin In Lr 10 Units/1,000 Ml) 10 unit in 1,000 mls @ 500 mls/hr IV .CONTINUOUS ROBBI Oxytocin/Lactated Ringer's (Pitocin In Lr 10 Units/1,000 Ml) 10 unit in 1,000 mls @ 12 mls/hr IV TITRATE ROBBI; Protocol Last Titration: 02/11/21 17:35 Dose: 3 munits/min, 18 mls/hr Documented by: Lidocaine HCl (Lidocaine 1% 50 Ml Mdv) 50 ml INJECT ONETIME PRN PRN Reason: Breakthrough Pain Ondansetron HCl (Ondansetron 4 Mg/2 Ml Sdv) 4 mg IVPUSH ONETIME PRN PRN Reason: Nausea/Vomiting Sodium Chloride (Sodium Chloride 0.9% 10 Ml Syringe) 10 ml FLUSH ASDIRECTED PRN PRN Reason: Keep Vein Open Discontinued Medications Miscellaneous Medication (Phenylephrine Hcl In 0.9% Nacl 1 Mg/10 Ml Syringe) 0 mg IVPUSH ONETIME ONE Stop: 02/11/21 07:36 Last Admin: 02/11/21 14:37 Dose: 0.05 mg Documented by: - Uterine Contractions Uterine Monitoring Mode: IUPC Contraction Frequency (min): 5 Contraction Duration (sec): 60-75 Contraction Intensity: Moderate to Strong Uterine Resting Tone: Soft - Monitoring Monitor Mode: Spiral Electrode Heart Rate (FHR) Baseline: 180 Heart Rate (FHR) Per Doppler: 180 Heart Rate (FHR) Variability: Minimal (0-5 bpm) Accelerations: Present, 15x15 Decelerations: Early, Recurrent (>50% x 20 min) Strip Review: Category II - Vaginal Exam Dilation (cm): 5 Effacement (Percent): 90 Station: -1 Cervical Position: Anterior Sterile Vaginal Exam Performed By: Jose Delatorre Vaginal Exam Comment: Intrauterine pressure catheter placed at time of cervical exam. Mother and infant tolerated procedure without difficulty. - Labor Progress (Free Text) Labor Progress: Val Moore is a 30-year-old -0-2-1 female at 39 weeks 0 days undergoing induction of labor secondary to suspected macrosomia Patient making minimal progress at this time. Her cervix has been overall unchanged since her exam at around 13:45. She had a deceleration at that time and scalp electrode placed with that exam. Patient with epidural for anesthesia Infant showing tachycardia with minimal variability and +15 x 15 accelerations. There also recurrent early decelerations. Patient currently has a category 2 heart rate tracing with concerns for normal progression of labor We will continue to monitor closely. Patient on Pitocin for augmentation of labor Routine vitals Patient with temperature of 100.1 F. If patient does develop a fever would recommend for her to be treated as chorioamnionitis Intrauterine pressure catheter placed with most recent exam. We will monitor closely for any dilation of the cervix Suspect that patient may not be able to have vaginal delivery but we will try for vaginal delivery until otherwise indicated Jose Delatorre MD 5:43 PM 02/11/2021
[2021-02-11] MEDS ORDERED: Lidocaine 2% with EPINEPHrine 1:200,000 20 ML SDV ONE (19:07)
[2021-02-11] MEDS ORDERED: Clindamycin Phosphate in D5W 900 MG in Premix Bag 1 BAG IV ONE ×2 (19:07)
[2021-02-11] MEDS ORDERED: Lactated Ringers 2,000 ML ONE (19:07)
[2021-02-11] MEDS ORDERED: fentaNYL 100 MCG/2 ML SDV ONE ×2 (19:07→20:10)
[2021-02-11] MEDS ORDERED: ceFAZolin 1 GM Vial ONE (19:07)
[2021-02-11] MEDS ORDERED: Citric Acid/Sodium Citrate Solution 30 ML Cup PO ONE (19:07)
[2021-02-11] MEDS ORDERED: ceFAZolin 2 GM in Premix Bag 1 BAG IV ONE (19:07)
[2021-02-11] MEDS ORDERED: Gentamicin 500 MG in Sodium Chloride 0.9% 100 ML IV ONE (19:07)
[2021-02-11] MEDS ORDERED: Oxytocin 10 Units/1 ML SDV ONE (19:07)
[2021-02-11] MEDS ORDERED: Metoclopramide 10 MG/2 ML SDV IVPUSH ONE (19:07)
[2021-02-11] MEDS ORDERED: Ketorolac 30 MG/ML SDV ONE (19:07)
[2021-02-11] MEDS ORDERED: Ondansetron 4 MG/2 ML SDV ONE (19:07)
[2021-02-11] MEDS ORDERED: ePHEDrine 50 MG/ML SDV ONE (19:07)
[2021-02-11] MEDS ORDERED: Metoclopramide 10 MG/2 ML SDV ONE (19:12)
[2021-02-11] MEDS ORDERED: Citric Acid/Sodium Citrate Solution 30 ML Cup ONE (19:13)
[2021-02-11] MEDS ORDERED: Bupivacaine 0.5% 30 ML SDV ONE (19:14)
[2021-02-11] MEDS ORDERED: Lactated Ringers 1,000 ML IV SCH (19:15)
--- NOTE | 2021-02-11 19:15 | PCM.PNLD ---
Labor Progress Note - VS & Meds Vital Signs: Last Vital Signs Temp 36.8 C 02/11/21 07:45 Pulse 95 02/11/21 15:30 Resp BP 96/52 L 02/11/21 15:30 Pulse Ox 98 02/11/21 12:47 Active Medications: Current Medications Diphenhydramine HCl (Diphenhydramine 50 Mg/Ml Sdv) 25 mg IVPUSH Q6H PRN PRN Reason: pruritis Ephedrine Sulfate (Ephedrine 50 Mg/Ml Sdv) 5 mg IVPUSH ASDIRECTED PRN PRN Reason: Hypotension Fentanyl (Fentanyl 100 Mcg/2 Ml Sdv) 100 mcg EPIDUR Q3H PRN PRN Reason: Pain Last Admin: 02/11/21 13:10 Dose: 100 mcg Documented by: Fentanyl/Bupivacaine HCl (Bupivacaine/Fentanyl/Ns 100 Ml Bag) 100 ml EPIDUR ASDIRECTED ROBBI Last Admin: 02/11/21 13:10 Dose: 100 ml Documented by: Lactated Ringer's (Ringers, Lactated) 1,000 mls @ 100 mls/hr IV ASDIRECTED ROBBI Last Admin: 02/11/21 16:09 Dose: 100 mls/hr Documented by: Oxytocin/Lactated Ringer's (Pitocin In Lr 10 Units/1,000 Ml) 10 unit in 1,000 mls @ 500 mls/hr IV .CONTINUOUS ROBBI Oxytocin/Lactated Ringer's (Pitocin In Lr 10 Units/1,000 Ml) 10 unit in 1,000 mls @ 12 mls/hr IV TITRATE ROBBI; Protocol Last Titration: 02/11/21 18:15 Dose: 4 munits/min, 24 mls/hr Documented by: Lactated Ringer's (Ringers, Lactated) 1,000 mls @ 125 mls/hr IV ASDIRECTED ROBBI Cefazolin Sodium/Dextrose 2 gm (/ Premix) 50 mls @ 100 mls/hr IV ONETIME ONE Stop: 02/11/21 19:36 Gentamicin Sulfate 500 mg/ (Sodium Chloride) 112.5 mls @ 200 mls/hr IV ONETIME ONE Stop: 02/11/21 19:36 Clindamycin Phosphate 900 mg/ (Premix) 50 mls @ 100 mls/hr IV ONETIME ONE Stop: 02/11/21 19:36 Oxytocin/Lactated Ringer's (Pitocin In Lr 10 Units/1,000 Ml) 10 unit in 1,000 mls @ 100 mls/hr IV ASDIRECTED ROBBI; Protocol Lidocaine HCl (Lidocaine 1% 50 Ml Mdv) 50 ml INJECT ONETIME PRN PRN Reason: Breakthrough Pain Metoclopramide HCl (Metoclopramide 10 Mg/2 Ml Sdv) 10 mg IVPUSH ONETIME ONE Stop: 02/11/21 19:08 Ondansetron HCl (Ondansetron 4 Mg/2 Ml Sdv) 4 mg IVPUSH ONETIME PRN PRN Reason: Nausea/Vomiting Sodium Chloride (Sodium Chloride 0.9% 10 Ml Syringe) 10 ml FLUSH ASDIRECTED PRN PRN Reason: Keep Vein Open Sodium Chloride (Sodium Chloride 0.9% 10 Ml Syringe) 10 ml FLUSH ASDIRECTED PRN PRN Reason: Keep Vein Open Discontinued Medications Cefazolin Sodium (Cefazolin 1 Gm Vial) Confirm Administered Dose 2 gm .ROUTE .STK-MED ONE Stop: 02/11/21 19:08 Citric Acid/Sodium Citrate (Citric Acid/Sodium Citrate Solution 30 Ml Cup) 30 ml PO ONETIME ONE Stop: 02/11/21 19:08 Ephedrine Sulfate (Ephedrine 50 Mg/Ml Sdv) Confirm Administered Dose 50 mg .ROUTE .STK-MED ONE Stop: 02/11/21 19:08 Fentanyl (Fentanyl 100 Mcg/2 Ml Sdv) Confirm Administered Dose 100 mcg .ROUTE .STK-MED ONE Stop: 02/11/21 19:08 Lactated Ringer's (Ringers, Lactated) Confirm Administered Dose 2,000 mls @ as directed .ROUTE .STK-MED ONE Stop: 02/11/21 19:08 Ketorolac Tromethamine (Ketorolac 30 Mg/Ml Sdv) Confirm Administered Dose 30 mg .ROUTE .STK-MED ONE Stop: 02/11/21 19:08 Lidocaine/Epinephrine (Lidocaine 2% With Epinephrine 1:200,000 20 Ml Sdv) Confirm Administered Dose 20 ml .ROUTE .STK-MED ONE Stop: 02/11/21 19:08 Miscellaneous Medication (Phenylephrine Hcl In 0.9% Nacl 1 Mg/10 Ml Syringe) 0 mg IVPUSH ONETIME ONE Stop: 02/11/21 07:36 Last Admin: 02/11/21 14:37 Dose: 0.05 mg Documented by: Miscellaneous Medication (Phenylephrine Hcl In 0.9% Nacl 1 Mg/10 Ml Syringe) Confirm Administered Dose 1 mg .ROUTE .STK-MED ONE Stop: 02/11/21 19:08 Ondansetron HCl (Ondansetron 4 Mg/2 Ml Sdv) Confirm Administered Dose 4 mg .ROUTE .STK-MED ONE Stop: 02/11/21 19:08 Oxytocin (Oxytocin 10 Units/1 Ml Sdv) Confirm Administered Dose 20 unit .ROUTE .STK-MED ONE Stop: 02/11/21 19:08 - Uterine Contractions Uterine Monitoring Mode: IUPC Contraction Frequency (min): 2-5 Contraction Duration (sec): 60-75 Contraction Intensity: Moderate to Strong Uterine Resting Tone: Soft - Monitoring Monitor Mode: Spiral Electrode Heart Rate (FHR) Baseline: 170 Heart Rate (FHR) Per Doppler: 170 Heart Rate (FHR) Variability: Minimal (0-5 bpm) Accelerations: Present, 15x15 Decelerations: Early, Recurrent (>50% x 20 min) Strip Review: Category II - Vaginal Exam Dilation (cm): 5 Effacement (Percent): 90 Station: -1 Cervical Position: Anterior Sterile Vaginal Exam Performed By: Radha Fajardo - Labor Progress (Free Text) Labor Progress: Val Moore is a 30-year-old -0-2-1 female at 39 weeks 0 days undergoing induction of labor secondary to suspected macrosomia and new diagnosis of chorioamnionitis given tachycardia and maternal fever with temperature of 100.9 F as well as arrest of dilation at 5 cm Patient with ongoing contractions and no acid changer the last several hours of monitoring. Patient with no cervical dilation since approximately 2:30 PM. An IUPC was inserted and she was noted to have adequate contraction pattern and likely was having adequate contraction pattern earlier with the IUPC not in place but she has now developed tachycardia with heart rate into the 170s to 180s as well as a maternal fever of 100.9 F. Given the concern for macrosomia as well as the arrest of dilation and chorioamnionitis we are recommending for the patient to undergo primary section. Patient is in agreement with this plan and consents were signed in labor and delivery prior to going back for a section. Patient to be n.p.o. prior to her procedure Continue IV fluids for fluid hydration Patient to receive Ancef 2 g IV, gentamicin 5 mg/kg grams IV and clindamycin 900 mg IV for surgical prophylaxis in the setting of chorioamnionitis. Patient is to have 1 additional dose of Ancef and clindamycin after delivery Prep surgical site Continuous monitoring until she goes back to the operating room Prepare OR for urgent section Contact operating room staff for scheduling of procedure Jose Delatorre MD 7:18 PM 02/11/2021
[2021-02-11] MEDS ORDERED: fentaNYL 100 MCG/2 ML SDV IVPUSH PRN (19:29)
[2021-02-11] MEDS ORDERED: Phenylephrine/Normal Saline 100 MCG/ML 10 ML Syringe IVPUSH PRN (19:29)
--- NOTE | 2021-02-11 21:00 | PCM.POSTAN ---
POST ANESTHESIA ASSESSMENT - MENTAL STATUS Mental Status: Alert - VITAL SIGNS Vital Signs: Last Vital Signs Temp 100.4 02/11/212049 Pulse 126 02/11/212049 Resp 13 02/11/212049 BP 95/52 02/11/212049 Pulse Ox 97 02/11/212049 - RESPIRATORY Respiratory Status: Respiratory Rate WNL, Airway Patent, O2 Saturation Stable - CARDIOVASCULAR CV Status: Pulse Rate WNL, Blood Pressure Stable - GASTROINTESTINAL GI Status: No Symptoms - POST OP HYDRATION Hydration Status: Adequate & Stable
--- NOTE | 2021-02-11 21:20 | PCM.OPNOTE ---
- General Post-Op/Procedure Note Date of Surgery/Procedure: 02/11/21 Operative Procedure(s): Primary section for arrest of dilation at 5 cm with suspected macrosomia and new onset chorioamnionitis Findings: Live male delivered in vertex presentation at 19:51, weight of 4430 g (9 pounds 12.3 ounces). Apgars of 8 and 9. Overall normal-appearing uterus, bilateral fallopian tubes and ovaries. Pre Op Diagnosis: 39 weeks gestational age, arrest of dilation at 5 cm, suspected macrosomia of , chorioamnionitis Post-Op Diagnosis: Same Anesthesia Technique: Epidural Primary Surgeon: Jose Delatorre Anesthesia Provider: Deysi Germain Time Analysis Clerk: Key Randolph Time Analysis Clerk: Riccardo Guillory ([email or web address]) Reason Time Analysis Clerk Was Necessary: Patient safety and reduction of morbidity and mortality Role of Time Analysis Clerk: Retraction for visualization Pathology: None Fluid Replacement, Intraop: 1,300 Output, Urine Amount: 150 EBL in mLs: 1,000 Complications: None Condition: Good Free Text/Narrative:: Intake & Output 02/11/21 02/11/21 02/11/21 06:59 14:59 22:59 Intake Total 1120 Output Total 150 Balance 1120 -150 Length of procedure: 65 minutes Procedure in Detail: The patient was seen in labor and delivery room #31 and the risks, benefits and complications were discussed with the patient given her arrest of dilation at 5 cm with suspected macrosomia and new onset chorioamnionitis based on maternal fever of 100.9 F and tachycardia. The patient desired to proceed with section and appropriate consents were signed. The patient was taken to operating room #1. A Time Out was held and the patient was identified using 2 identifiers and the procedure was confirmed. The patient was given additional anesthesia through her epidural and was placed in dorsal supine position with leftward tilt. She was given 2 g Ancef, gentamicin 500 mg IV and clindamycin 900 mg IV for antibiotic prophylaxis. The patient was prepped and draped in the usual sterile manner. The abdominal skin was tested and the epidural anesthesia was found to be adequate. The skin was injected with 0.5% marcaine for local anesthesia. A Pfannenstiel skin incision was made and carried down through the subcutaneous tissue to the fascia with the scapel. The fascia was nicked in the midline using a scalpel and the fascial incision was extended transversely with Mcnally scissors. The inferior aspect of the fascia was grasped with Alfonso clamps and tented upwards. The fascia was from the underlying rectus muscle bluntly and sharply with Mcnally scissors. Attention was then turned to the superior aspect of the fascia and was grasped using Alfonso clamps and tented upwards. The underlying rectus muscle was dissected off bluntly and sharply with Mcnally scissors. The peritoneum was identified and entered bluntly. The bladder blade was inserted and the lower uterine segment was identified. A low transverse uterine incision was made sharply with a scalpel and extended laterally bluntly. The infant's head was brought to the uterine incision, the bladder blade was removed and the was delivered atraumatically. On 02/11/2021 a live male was delivered in vertex position at 19:51, wt of 4430 grams, 9 pounds and 12.3 ounces. APGARS were 8 & 9. The nose and mouth were suctioned with bulb suction, the cord was doubly clamped and cut and was transferred to the awaiting pediatric nurse. The placenta was removed intact and appeared normal with a three vessel cord. The uterus was exteriorized and the uterine cavity was cleaned using lap sponges. The hysterotomy was closed with a running locked suture of 0-Vicryl. A second suture of 0-Vicryl was used to imbricate the hysterotomy. The hysterotomy was noted to have some bleeding near the right edge and several uivnrs-ma-lldsh sutures with 0 Vicryl were placed in this area to stop the bleeding. Hemostasis was noted after 2 [id number] sutures were placed. The uterus, tubes and ovaries appeared overall normal. The uterus was then returned into the abdominal cavity. The hysterotomy was noted to remain hemostatic inside the abdominal cavity. The fascia was noted to be hemostatic and the fascia was then reapproximated with running sutures of 0-Vicryl. The subcutaneous fat was reapproximated using 0 Vicryl. The skin was reapproximated using 4-0 Monocryl and Dermabond glue was applied over the incision. Instrument, sponge, and needle counts were correct prior to the abdominal closure and at the conclusion of the case.
[2021-02-11] MEDS ORDERED: Naloxone 0.4 MG/ML SDV IVPUSH PRN (22:18)
[2021-02-11] MEDS ORDERED: Magnesium Hydroxide 400 MG/5 ML Susp 30 ML Cup PO PRN (22:18)
[2021-02-11] MEDS ORDERED: Dextrose 5%-Lactated Ringers 1,000 ML IV SCH (22:18)
[2021-02-11] MEDS: traMADol 50 MG Tab PO PRN (22:55)
[2021-02-12] MEDS: traMADol 50 MG Tab PO PRN ×4 (00:05→19:19)
[2021-02-12] MEDS: Ketorolac 30 MG/ML SDV IVPUSH SCH ×3 (01:55→14:43)
[2021-02-12] MEDS ORDERED: Clindamycin Phosphate in D5W 900 MG in Premix Bag 1 BAG IV ONE ×2 (03:30)
--- NOTE | 2021-02-12 08:00 | PCM.PNPP ---
<Riccardo Guillory - Last Filed: 02/12/21 08:14> - General Info Date of Service: 02/12/21 Admission Dx/Problem (Free Text): Patient Status Order with Admit Dx/Problem 02/11/21 07:39 Patient Status [ADT] Routine 02/11/21 08:47 Admission Status [Patient Status] [ADT] Routine Admission Diagnosis/Problem Admission Diagnosis/Problem Subjective Update: Patient is doing well today. She does report some soreness. She has been able to ambulate but has not yet had a bowel movement or passed flatus. Reports appetite is good and is planning on ordering breakfast. [place] in place. Attempting to breastfeed; is also supplementing with formula. She is wondering if she can take a probiotic to prevent a yeast infection given the antibiotics she was given. Her mom is going to lease picker her prescription for Escitalopram today and she is planning on starting that as well. Functional Status: Reports: Pain Controlled - Review of Systems General: Reports: No Symptoms Pulmonary: Reports: No Symptoms Cardiovascular: Reports: No Symptoms Gastrointestinal: Reports: No Symptoms Skin: Reports: No Symptoms - General Info Date of Service: 02/12/21 - Patient Data Vital Signs - Most Recent: Last Vital Signs Temp 98.2 F 02/12/21 04:29 Pulse 112 H 02/12/21 04:29 Resp 18 02/12/21 04:29 BP 104/58 L 02/12/21 04:29 Pulse Ox 95 02/12/21 04:29 Weight - Most Recent: 220 lb 12.8 oz I&O - Last 24 Hours: Intake & Output 02/11/21 02/12/21 02/12/21 22:59 06:59 14:59 Intake Total 1500 4600 Output Total 450 900 Balance 1050 3700 Lab Results - Last 24 Hours: Laboratory Results - last 24 hr 02/11/21 02/11/21 02/11/21 Range/Units 07:50 08:33 08:33 WBC 6.81 (3.98-10.04) K/mm3 RBC 4.12 (3.98-5.22) M/mm3 Hgb 13.0 (11.2-15.7) gm/dl Hct 38.5 (34.1-44.9) % MCV 93.4 (79.4-94.8) fl MCH 31.6 (25.6-32.2) pg MCHC 33.8 (32.2-35.5) g/dl RDW Std Deviation 49.1 H (36.4-46.3) fL Plt Count 152 L (182-369) K/mm3 MPV 10.0 (9.4-12.3) fl Neut % (Auto) 67.6 (34.0-71.1) % Lymph % (Auto) 22.6 (19.3-51.7) % Mcnairy % (Auto) 9.0 (4.7-12.5) % Eos % (Auto) 0.4 L (0.7-5.8) Baso % (Auto) 0.1 (0.1-1.2) % Neut # (Auto) 4.60 (1.56-6.13) K/mm3 Lymph # (Auto) 1.54 (1.18-3.74) K/mm3 Mcnairy # (Auto) 0.61 H (0.24-0.36) K/mm3 Eos # (Auto) 0.03 L (0.04-0.36) K/mm3 Baso # (Auto) 0.01 (0.01-0.08) K/mm3 Manual Slide Review RPR Non-reactive (NONREACTIVE) SARS-CoV-2 RNA (JOSSUE) Negative (NEGATIVE) Blood Type Gel Antibody Screen 02/11/21 02/11/21 02/12/21 Range/Units 08:33 23:25 05:55 WBC 13.79 H 16.14 H (3.98-10.04) K/mm3 RBC 3.51 L 3.46 L (3.98-5.22) M/mm3 Hgb 11.1 L D 10.7 L (11.2-15.7) gm/dl Hct 33.2 L 32.7 L (34.1-44.9) % MCV 94.6 94.5 (79.4-94.8) fl MCH 31.6 30.9 (25.6-32.2) pg MCHC 33.4 32.7 (32.2-35.5) g/dl RDW Std Deviation 49.1 H 48.8 H (36.4-46.3) fL Plt Count 125 L 133 L (182-369) K/mm3 MPV 10.1 10.1 (9.4-12.3) fl Neut % (Auto) 85.5 H 83.6 H (34.0-71.1) % Lymph % (Auto) 6.2 L 6.3 L (19.3-51.7) % Mcnairy % (Auto) 8.0 9.7 (4.7-12.5) % Eos % (Auto) 0 L 0.1 L (0.7-5.8) Baso % (Auto) 0.1 0.1 (0.1-1.2) % Neut # (Auto) 11.80 H 13.50 H (1.56-6.13) K/mm3 Lymph # (Auto) 0.85 L 1.02 L (1.18-3.74) K/mm3 Mcn[place] # (Auto) 1.10 H 1.57 H (0.24-0.36) K/mm3 Eos # (Auto) 0.00 L 0.01 L (0.04-0.36) K/mm3 Baso # (Auto) 0.01 0.01 (0.01-0.08) K/mm3 Manual Slide Review Abnormal smear Normal smear RPR (NONREACTIVE) SARS-CoV-2 RNA (JOSSUE) (NEGATIVE) Blood Type A POSITIVE Gel Antibody Screen Negative Med Orders - Current: Current Medications Diphenhydramine HCl (Diphenhydramine 50 Mg/Ml Sdv) 25 mg IVPUSH Q6H PRN PRN Reason: Itching or Nausea Docusate Sodium (Docusate Sodium 100 Mg Cap) 100 mg PO BID ROBBI Ephedrine Sulfate (Ephedrine 50 Mg/Ml Sdv) 5 mg IVPUSH SEECOMMENT PRN PRN Reason: Other Oxytocin/Lactated Ringer's (Pitocin In Lr 10 Units/1,000 Ml) 10 unit in 1,000 mls @ 100 mls/hr IV .CONTINUOUS ROBBI Ibuprofen (Ibuprofen 600 Mg Tab) 600 mg PO Q6H PRN PRN Reason: mild pain or fever Ketorolac Tromethamine (Ketorolac 30 Mg/Ml Sdv) 30 mg IVPUSH Q6H ROBBI Stop: 02/12/21 14:31 Last Admin: 02/12/21 01:55 Dose: 30 mg Documented by: Magnesium Hydroxide (Magnesium Hydroxide 400 Mg/5 Ml Susp 30 Ml Cup) 30 ml PO BEDTIME PRN PRN Reason: Constipation Naloxone HCl (Naloxone 0.4 Mg/Ml Sdv) 0.1 mg IVPUSH SEECOMMENT PRN PRN Reason: Respiratory Depression Prenat Multivit/York/Iron/Folic Ac ( Multivitamin With Calcium/Folic Acid/Iron Tab) 1 each PO DAILY ROBBI Tramadol HCl (Tramadol 50 Mg Tab) 50 mg PO Q6H PRN PRN Reason: Pain (moderate 4-6) Last Admin: 02/12/21 00:05 Dose: 50 mg Documented by: Tramadol HCl (Tramadol 50 Mg Tab) 100 mg PO Q6H PRN PRN Reason: Pain (severe 7-10) Last Admin: 02/12/21 06:33 Dose: 100 mg Documented by: Discontinued Medications Bupivacaine HCl (Bupivacaine 0.5% 30 Ml Sdv) Confirm Administered Dose 30 ml .ROUTE .STK-MED ONE Stop: 02/11/21 19:15 Last Admin: 02/11/21 19:33 Dose: 20 ml Documented by: Cefazolin Sodium (Cefazolin 1 Gm Vial) Confirm Administered Dose 2 gm .ROUTE .STK-MED ONE Stop: 02/11/21 19:08 Citric Acid/Sodium Citrate (Citric Acid/Sodium Citrate Solution 30 Ml Cup) 30 ml PO ONETIME ONE Stop: 02/11/21 19:08 Last Admin: 02/11/21 19:17 Dose: 30 ml Documented by: Citric Acid/Sodium Citrate (Citric Acid/Sodium Citrate Solution 30 Ml Cup) Confirm Administered Dose 30 ml .ROUTE .STK-MED ONE Stop: 02/11/21 19:14 Last Admin: 02/11/21 19:23 Dose: Not Given Documented by: Diphenhydramine HCl (Diphenhydramine 50 Mg/Ml Sdv) 25 mg IVPUSH Q6H PRN PRN Reason: pruritis Diphenhydramine HCl (Diphenhydramine 50 Mg/Ml Sdv) 25 mg IVPUSH Q6H PRN PRN Reason: pruritis Ephedrine Sulfate (Ephedrine 50 Mg/Ml Sdv) 5 mg IVPUSH ASDIRECTED PRN PRN Reason: Hypotension Ephedrine Sulfate (Ephedrine 50 Mg/Ml Sdv) Confirm Administered Dose 50 mg .ROUTE .STK-MED ONE Stop: 02/11/21 19:08 Ephedrine Sulfate (Ephedrine 50 Mg/Ml Sdv) 5 mg IVPUSH ASDIRECTED PRN PRN Reason: Hypotension Fentanyl (Fentanyl 100 Mcg/2 Ml Sdv) 100 mcg EPIDUR Q3H PRN PRN Reason: Pain Last Admin: 02/11/21 13:10 Dose: 100 mcg Documented by: Fentanyl (Fentanyl 100 Mcg/2 Ml Sdv) Confirm Administered Dose 100 mcg .ROUTE .STK-MED ONE Stop: 02/11/21 19:08 Fentanyl (Fentanyl 100 Mcg/2 Ml Sdv) 50 mcg IVPUSH Q20M PRN PRN Reason: Pain Fentanyl (Fentanyl 100 Mcg/2 Ml Sdv) Confirm Administered Dose 100 mcg .ROUTE .[employer] ONE Stop: 02/11/21 20:11 Fentanyl/Bupivacaine HCl (Bupivacaine/Fentanyl/Ns 100 Ml Bag) 100 ml EPIDUR ASDIRECTED ROBBI Last Admin: 02/11/21 13:10 Dose: 100 ml Documented by: Lactated Ringer's (Ringers, Lactated) 1,000 mls @ 100 mls/hr IV ASDIRECTED ROBBI Last Admin: 02/11/21 16:09 Dose: 100 mls/hr Documented by: Oxytocin/Lactated Ringer's (Pitocin In Lr 10 Units/1,000 Ml) 10 unit in 1,000 mls @ 500 mls/hr IV .CONTINUOUS ROBBI Oxytocin/Lactated Ringer's (Pitocin In Lr 10 Units/1,000 Ml) 10 unit in 1,000 mls @ 12 mls/hr IV TITRATE ROBBI; Protocol Last Titration: 02/11/21 19:05 Dose: 0 munits/min, 0 mls/hr Documented by: Lactated Ringer's (Ringers, Lactated) Confirm Administered Dose 2,000 mls @ as directed .ROUTE .[employer] ONE Stop: 02/11/21 19:08 Lactated Ringer's (Ringers, Lactated) 1,000 mls @ 125 mls/hr IV ASDIRECTED [facility] Cefazolin Sodium/Dextrose 2 gm (/ Premix) 50 mls @ 100 mls/hr IV ONETIME ONE Stop: 02/11/21 19:36 Last Admin: 02/11/21 22:20 Dose: Not Given Documented by: Gentamicin Sulfate 500 mg/ (Sodium Chloride) 112.5 mls @ 200 mls/hr IV ONETIME ONE Stop: 02/11/21 19:36 Last Admin: 02/11/21 22:20 Dose: Not Given Documented by: Clindamycin Phosphate 900 mg/ (Premix) 50 mls @ 100 mls/hr IV ONETIME ONE Stop: 02/11/21 19:36 Last Admin: 02/11/21 19:21 Dose: 100 mls/hr Documented by: Oxytocin/Lactated Ringer's (Pitocin In Lr 10 Units/1,000 Ml) 10 unit in 1,000 mls @ 100 mls/hr IV ASDIRECTED ROBBI; Protocol Dextrose/Lactated Ringer's (Dextrose 5%-Lactated Ringers) 1,000 mls @ 125 mls/hr IV ASDIRECTED ROBBI Stop: 02/12/21 06:17 Last Admin: 02/11/21 22:56 Dose: 125 mls/hr Documented by: Cefazolin Sodium/Dextrose (Ancef 2 Gm/50 Ml) 50 mls @ 100 mls/hr IV ONETIME ONE Stop: 02/12/21 03:59 Last Admin: 02/12/21 03:44 Dose: 100 mls/hr Documented by: Clindamycin Phosphate 900 mg/ (Premix) 50 mls @ 100 mls/hr IV ONETIME ONE Stop: 02/12/21 03:59 Last Admin: 02/12/21 04:31 Dose: 100 mls/hr Documented by: Ketorolac Tromethamine (Ketorolac 30 Mg/Ml Sdv) Confirm Administered Dose 30 mg .ROUTE .STK-MED ONE Stop: 02/11/21 19:08 Lidocaine HCl (Lidocaine 1% 50 Ml Mdv) 50 ml INJECT ONETIME PRN PRN Reason: Breakthrough Pain Lidocaine/Epinephrine (Lidocaine 2% With Epinephrine 1:200,000 20 Ml Sdv) Confirm Administered Dose 20 ml .ROUTE .STK-MED ONE Stop: 02/11/21 19:08 Metoclopramide HCl (Metoclopramide 10 Mg/2 Ml Sdv) 10 mg IVPUSH ONETIME ONE Stop: 02/11/21 19:08 Last Admin: 02/11/21 19:18 Dose: 10 mg Documented by: Metoclopramide HCl (Metoclopramide 10 Mg/2 Ml Sdv) Confirm Administered Dose 10 mg .ROUTE .STK-MED ONE Stop: 02/11/21 19:13 Last Admin: 02/11/21 19:22 Dose: Not Given Documented by: Miscellaneous Medication (Phenylephrine Hcl In 0.9% Nacl 1 Mg/10 Ml Syringe) 0 mg IVPUSH ONETIME ONE Stop: 02/11/21 07:36 Last Admin: 02/11/21 14:37 Dose: 0.05 mg Documented by: Miscellaneous Medication (Phenylephrine Hcl In 0.9% Nacl 1 Mg/10 Ml Syringe) Confirm Administered Dose 1 mg .ROUTE .[employer]-[facility] ONE Stop: 02/11/21 19:08 Miscellaneous Medication (Phenylephrine Hcl In 0.9% Nacl 1 Mg/10 Ml Syringe) Confirm Administered Dose 1 mg .ROUTE .[employer] ONE Stop: 02/11/21 20:31 Ondansetron HCl (Ondansetron 4 Mg/2 Ml Sdv) 4 mg IVPUSH ONETIME PRN PRN Reason: Nausea/Vomiting Ondansetron HCl (Ondansetron 4 Mg/2 Ml Sdv) Confirm Administered Dose 4 mg .ROUTE .[employer] ONE Stop: 02/11/21 19:08 Ondansetron HCl (Ondansetron 4 Mg/2 Ml Sdv) 4 mg IVPUSH ONETIME PRN PRN Reason: Nausea/Vomiting Oxytocin (Oxytocin 10 Units/1 Ml Sdv) Confirm Administered Dose 20 unit .ROUTE .[employer] ONE Stop: 02/11/21 19:08 Phenylephrine HCl (Phenylephrine/Normal Saline 100 Mcg/Ml 10 Ml Syringe) 0.1 mg IVPUSH Q10M PRN PRN Reason: Hypotension Sodium Chloride (Sodium Chloride 0.9% 10 Ml Syringe) 10 ml FLUSH ASDIRECTED PRN PRN Reason: Keep Vein Open Sodium Chloride (Sodium Chloride 0.9% 10 Ml Syringe) 10 ml FLUSH ASDIRECTED PRN PRN Reason: Keep Vein Open - Interaction Disposition, : [place] to Nursery Infant Interaction: Not Applicable Infant Feeding: Attempted ; Nursed Fair/Poor Support Person: - Recovery Exam Fundal Tone: Firm Fundal Level: At Umbilicus Fundal Placement: Midline Lochia Amount: Small Lochia Color: Rubra/Red Perineum Description: Intact, Minimal Bruising/Swelling - Exam General: Alert, Oriented HEENT: EOMI Lungs: Clear to Auscultation, Normal Respiratory Effort Cardiovascular: Regular Rate, Regular Rhythm GI/Abdominal Exam: Normal Bowel Sounds, Soft, Tender Extremities: Normal Inspection, No Pedal Edema, Normal Capillary Refill Skin: Warm, Dry, Intact Wound/Incisions: Healing Well Neurological: No New Focal Deficit Psy/Mental Status: Alert, Normal Affect, Normal Mood - Problem List & Annotations (1) 39 weeks gestation of SNOMED Code(s): 91522372 Code(s): Z3A.39 - 39 WEEKS GESTATION OF Status: Acute Current Visit: Yes (2) macrosomia SNOMED Code(s): 58403802 Code(s): O36.60X0 - MATERNAL CARE FOR EXCESS GROWTH, UNSP TRIMESTER, UNSP Status: Acute Current Visit: Yes (3) Anxiety SNOMED Code(s): 71837619 Code(s): F41.9 - ANXIETY DISORDER, UNSPECIFIED Status: Acute Current Visit: Yes (4) Rubella immune SNOMED Code(s): 710829314 Code(s): Z78.9 - OTHER SPECIFIED HEALTH STATUS Status: Acute Current Visit: Yes (5) delivery delivered SNOMED Code(s): 055902171 Code(s): O82 - ENCOUNTER FOR DELIVERY WITHOUT INDICATION Status: Acute Current Visit: Yes (6) Chorioamnionitis in third trimester SNOMED Code(s): 32493313, 05509126 Code(s): O41.1230 - CHORIOAMNIONITIS, THIRD TRIMESTER, NOT APPLICABLE OR UNSP Status: Acute Current Visit: Yes (7) History of depression SNOMED Code(s): 024851760 Code(s): Z87.59 - PERSONAL HISTORY OF COMP OF PREG, CHLDBRTH AND THE PUERP; Z86.59 - PERSONAL HISTORY OF OTHER MENTAL AND BEHAVIORAL DISORDERS Status: Acute Current Visit: Yes - Problem List Review Problem List Initiated/Reviewed/Updated: Yes - Assessment Assessment:: Patient is a 30 year old GBS negative G4 now P2022 x 1, x 1 who is day one post op primary for arrest of labor with suspected macrosomia. - Plan Plan:: 1. A+ with negative antibody screen 2. Rubella Immune 3. GBS negative 4. Post op day 1 primary for arrest of labor 5. AROM with moderate meconium staining 6. Maternal history of anxiety, depression - Escitalopram prescription sent to pharmacy 7. Chorioamnionitis - patient received clindamycin, gentamicin and Ancef. Patient has remained afebrile 8. Tachycardia - noted tachycardia last night, patient states that she is typically tachycardic. No other vital sign changes noted. 9. Post care per unit routine 10. Regular diet 11. Activity as tolerated 12. Pittman in place 13. Probiotics if patient desires 14. Anticipate discharge home Post op day 2 <Mendez Beal - Last Filed: 02/12/21 10:08> - Patient Data Vital Signs - Most Recent: Last Vital Signs Temp 98.2 F 02/12/21 08:24 Pulse 105 H 02/12/21 08:24 Resp 16 02/12/21 08:24 BP 107/65 02/12/21 08:24 Pulse Ox 95 02/12/21 08:24 I&O - Last 24 Hours: Intake & Output 02/11/21 02/12/21 02/12/21 22:59 06:59 14:59 Intake Total 1500 4600 Output Total 450 900 Balance 1050 3700 Lab Results - Last 24 Hours: Laboratory Results - last 24 hr 02/11/21 02/11/21 02/12/21 Range/Units 08:33 23:25 05:55 WBC 13.79 H 16.14 H (3.98-10.04) K/mm3 RBC 3.51 L 3.46 L (3.98-5.22) M/mm3 Hgb 11.1 L D 10.7 L (11.2-15.7) gm/dl Hct 33.2 L 32.7 L (34.1-44.9) % MCV 94.6 94.5 (79.4-94.8) fl MCH 31.6 30.9 (25.6-32.2) pg MCHC 33.4 32.7 (32.2-35.5) g/dl RDW Std Deviation 49.1 H 48.8 H (36.4-46.3) fL Plt Count 125 L 133 L (182-369) K/mm3 MPV 10.1 10.1 (9.4-12.3) fl Neut % (Auto) 85.5 H 83.6 H (34.0-71.1) % Lymph % (Auto) 6.2 L 6.3 L (19.3-51.7) % Mcnairy % (Auto) 8.0 9.7 (4.7-12.5) % Eos % (Auto) 0 L 0.1 L (0.7-5.8) Baso % (Auto) 0.1 0.1 (0.1-1.2) % Neut # (Auto) 11.80 H 13.50 H (1.56-6.13) K/mm3 Lymph # (Auto) 0.85 L 1.02 L (1.18-3.74) K/mm3 Mcnairy # (Auto) 1.10 H 1.57 H (0.24-0.36) K/mm3 Eos # (Auto) 0.00 L 0.01 L (0.04-0.36) K/mm3 Baso # (Auto) 0.01 0.01 (0.01-0.08) K/mm3 Manual Slide Review Abnormal smear Normal smear RPR Non-reactive (NONREACTIVE) Med Orders - Current: Current Medications Diphenhydramine HCl (Diphenhydramine 50 Mg/Ml Sdv) 25 mg IVPUSH Q6H PRN PRN Reason: Itching or Nausea Docusate Sodium (Docusate Sodium 100 Mg Cap) 100 mg PO BID [facility] Last Admin: 02/12/21 08:19 Dose: 100 mg Documented by: Ephedrine Sulfate (Ephedrine 50 Mg/Ml Sdv) 5 mg IVPUSH SEECOMMENT PRN PRN Reason: Other Oxytocin/Lactated Ringer's (Pitocin In Lr 10 Units/1,000 Ml) 10 unit in 1,000 mls @ 100 mls/hr IV .CONTINUOUS ROBBI Ibuprofen (Ibuprofen 600 Mg Tab) 600 mg PO Q6H PRN PRN Reason: mild pain or fever Ketorolac Tromethamine (Ketorolac 30 Mg/Ml Sdv) 30 mg IVPUSH Q6H [facility] Stop: 02/12/21 14:31 Last Admin: 02/12/21 08:19 Dose: 30 mg Documented by: Magnesium Hydroxide (Magnesium Hydroxide 400 Mg/5 Ml Susp 30 Ml Cup) 30 ml PO BEDTIME PRN PRN Reason: Constipation Naloxone HCl (Naloxone 0.4 Mg/Ml Sdv) 0.1 mg IVPUSH SEECOMMENT PRN PRN Reason: Respiratory Depression Prenat Multivit/York/Iron/Folic Ac ( Multivitamin With Calcium/Folic Acid/Iron Tab) 1 each PO DAILY ROBBI Last Admin: 02/12/21 08:19 Dose: 1 each Documented by: Tramadol HCl (Tramadol 50 Mg Tab) 50 mg PO Q6H PRN PRN Reason: Pain (moderate 4-6) Last Admin: 02/12/21 00:05 Dose: 50 mg Documented by: Tramadol HCl (Tramadol 50 Mg Tab) 100 mg PO Q6H PRN PRN Reason: Pain (severe 7-10) Last Admin: 02/12/21 06:33 Dose: 100 mg Documented by: Discontinued Medications Bupivacaine HCl (Bupivacaine 0.5% 30 Ml Sdv) Confirm Administered Dose 30 ml .ROUTE .STK-MED ONE Stop: 02/11/21 19:15 Last Admin: 02/11/21 19:33 Dose: 20 ml Documented by: Bupivacaine HCl (Bupivacaine 0.25% 10 Ml Sdv) 10 ml .ROUTE .STK-MED ONE Stop: 02/11/21 17:01 Cefazolin Sodium (Cefazolin 1 Gm Vial) Confirm Administered Dose 2 gm .ROUTE .STK-MED ONE Stop: 02/11/21 19:08 Citric Acid/Sodium Citrate (Citric Acid/Sodium Citrate Solution 30 Ml Cup) 30 ml PO ONETIME ONE Stop: 02/11/21 19:08 Last Admin: 02/11/21 19:17 Dose: 30 ml Documented by: Citric Acid/Sodium Citrate (Citric Acid/Sodium Citrate Solution 30 Ml Cup) Confirm Administered Dose 30 ml .ROUTE .STK-MED ONE Stop: 02/11/21 19:14 Last Admin: 02/11/21 19:23 Dose: Not Given Documented by: Diphenhydramine HCl (Diphenhydramine 50 Mg/Ml Sdv) 25 mg IVPUSH Q6H PRN PRN Reason: pruritis Diphenhydramine HCl (Diphenhydramine 50 Mg/Ml Sdv) 25 mg IVPUSH Q6H PRN PRN Reason: pruritis Ephedrine Sulfate (Ephedrine 50 Mg/Ml Sdv) 5 mg IVPUSH ASDIRECTED PRN PRN Reason: Hypotension Ephedrine Sulfate (Ephedrine 50 Mg/Ml Sdv) Confirm Administered Dose 50 mg .ROUTE .STK-MED ONE Stop: 02/11/21 19:08 Ephedrine Sulfate (Ephedrine 50 Mg/Ml Sdv) 5 mg IVPUSH ASDIRECTED PRN PRN Reason: Hypotension Fentanyl (Fentanyl 100 Mcg/2 Ml Sdv) 100 mcg EPIDUR Q3H PRN PRN Reason: Pain Last Admin: 02/11/21 13:10 Dose: 100 mcg Documented by: Fentanyl (Fentanyl 100 Mcg/2 Ml Sdv) Confirm Administered Dose 100 mcg .ROUTE .STK-MED ONE Stop: 02/11/21 19:08 Fentanyl (Fentanyl 100 Mcg/2 Ml Sdv) 50 mcg IVPUSH Q20M PRN PRN Reason: Pain Fentanyl (Fentanyl 100 Mcg/2 Ml Sdv) Confirm Administered Dose 100 mcg .ROUTE .STK-MED ONE Stop: 02/11/21 20:11 Fentanyl/Bupivacaine HCl (Bupivacaine/Fentanyl/Ns 100 Ml Bag) 100 ml EPIDUR ASDIRECTED ROBBI Last Admin: 02/11/21 13:10 Dose: 100 ml Documented by: Lactated Ringer's (Ringers, Lactated) 1,000 mls @ 100 mls/hr IV ASDIRECTED [facility] Last Admin: 02/11/21 16:09 Dose: 100 mls/hr Documented by: Oxytocin/Lactated Ringer's (Pitocin In Lr 10 Units/1,000 Ml) 10 unit in 1,000 mls @ 500 mls/hr IV .CONTINUOUS ROBBI Oxytocin/Lactated Ringer's (Pitocin In Lr 10 Units/1,000 Ml) 10 unit in 1,000 mls @ 12 mls/hr IV TITRATE ROBBI; Protocol Last Titration: 02/11/21 19:05 Dose: 0 munits/min, 0 mls/hr Documented by: Lactated Ringer's (Ringers, Lactated) Confirm Administered Dose 2,000 mls @ as directed .ROUTE .[employer] ONE Stop: 02/11/21 19:08 Lactated Ringer's (Ringers, Lactated) 1,000 mls @ 125 mls/hr IV ASDIRECTED [facility] Cefazolin Sodium/Dextrose 2 gm (/ Premix) 50 mls @ 100 mls/hr IV ONETIME ONE Stop: 03/18/21 19:36 Last Admin: 02/11/21 22:20 Dose: Not Given Documented by: Gentamicin Sulfate 500 mg/ (Sodium Chloride) 112.5 mls @ 200 mls/hr IV ONETIME ONE Stop: 02/11/21 19:36 Last Admin: 02/11/21 22:20 Dose: Not Given Documented by: Clindamycin Phosphate 900 mg/ (Premix) 50 mls @ 100 mls/hr IV ONETIME ONE Stop: 02/11/21 19:36 Last Admin: 02/11/21 19:21 Dose: 100 mls/hr Documented by: Oxytocin/Lactated Ringer's (Pitocin In Lr 10 Units/1,000 Ml) 10 unit in 1,000 mls @ 100 mls/hr IV ASDIRECTED ROBBI; Protocol Dextrose/Lactated Ringer's (Dextrose 5%-Lactated Ringers) 1,000 mls @ 125 mls/hr IV ASDIRECTED ROBBI Stop: 02/12/21 06:17 Last Admin: 02/11/21 22:56 Dose: 125 mls/hr Documented by: Cefazolin Sodium/Dextrose (Ancef 2 Gm/50 Ml) 50 mls @ 100 mls/hr IV ONETIME ONE Stop: 02/12/21 03:59 Last Admin: 02/12/21 03:44 Dose: 100 mls/hr Documented by: Clindamycin Phosphate 900 mg/ (Premix) 50 mls @ 100 mls/hr IV ONETIME ONE Stop: 02/12/21 03:59 Last Admin: 02/12/21 04:31 Dose: 100 mls/hr Documented by: Ketorolac Tromethamine (Ketorolac 30 Mg/Ml Sdv) Confirm Administered Dose 30 mg .ROUTE .STK-MED ONE Stop: 02/11/21 19:08 Lidocaine HCl (Lidocaine 1% 50 Ml Mdv) 50 ml INJECT ONETIME PRN PRN Reason: Breakthrough Pain Lidocaine/Epinephrine (Lidocaine 2% With Epinephrine 1:200,000 20 Ml Sdv) Confirm Administered Dose 20 ml .ROUTE .STK-MED ONE Stop: 02/11/21 19:08 Metoclopramide HCl (Metoclopramide 10 Mg/2 Ml Sdv) 10 mg IVPUSH ONETIME ONE Stop: 02/11/21 19:08 Last Admin: 02/11/21 19:18 Dose: 10 mg Documented by: Metoclopramide HCl (Metoclopramide 10 Mg/2 Ml Sdv) Confirm Administered Dose 10 mg .ROUTE .[employer] ONE Stop: 02/11/21 19:13 Last Admin: 02/11/21 19:22 Dose: Not Given Documented by: Miscellaneous Medication (Phenylephrine Hcl In 0.9% Nacl 1 Mg/10 Ml Syringe) 0 mg IVPUSH ONETIME ONE Stop: 02/11/21 07:36 Last Admin: 02/11/21 14:37 Dose: 0.05 mg Documented by: Miscellaneous Medication (Phenylephrine Hcl In 0.9% Nacl 1 Mg/10 Ml Syringe) Confirm Administered Dose 1 mg .ROUTE .[employer] ONE Stop: 02/11/21 19:08 Miscellaneous Medication (Phenylephrine Hcl In 0.9% Nacl 1 Mg/10 Ml Syringe) Confirm Administered Dose 1 mg .ROUTE .[employer] ONE Stop: 02/11/21 20:31 Ondansetron HCl (Ondansetron 4 Mg/2 Ml Sdv) 4 mg IVPUSH ONETIME PRN PRN Reason: Nausea/Vomiting Ondansetron HCl (Ondansetron 4 Mg/2 Ml Sdv) Confirm Administered Dose 4 mg .ROUTE .[employer] ONE Stop: 02/11/21 19:08 Ondansetron HCl (Ondansetron 4 Mg/2 Ml Sdv) 4 mg IVPUSH ONETIME PRN PRN Reason: Nausea/Vomiting Oxytocin (Oxytocin 10 Units/1 Ml Sdv) Confirm Administered Dose 20 unit .ROUTE .[employer] ONE Stop: 02/11/21 19:08 Phenylephrine HCl (Phenylephrine/Normal Saline 100 Mcg/Ml 10 Ml Syringe) 0.1 mg IVPUSH Q10M PRN PRN Reason: Hypotension Phenylephrine HCl (Phenylephrine/Normal Saline 100 Mcg/Ml 10 Ml Syringe) 1 mg .ROUTE .[facility] ONE Stop: 02/11/21 17:01 Sodium Chloride (Sodium Chloride 0.9% 10 Ml Syringe) 10 ml FLUSH ASDIRECTED PRN PRN Reason: Keep Vein Open Sodium Chloride (Sodium Chloride 0.9% 10 Ml Syringe) 10 ml FLUSH ASDIRECTED PRN PRN Reason: Keep Vein Open - Problem List & Annotations (1) 39 weeks gestation of SNOMED Code(s): 73347707 Code(s): Z3A.39 - 39 WEEKS GESTATION OF Status: Acute Current Visit: Yes (2) Anxiety SNOMED Code(s): 35597394 Code(s): F41.9 - ANXIETY DISORDER, UNSPECIFIED Status: Acute Current Visit: Yes (3) Arrest of dilation, delivered, current hospitalization SNOMED Code(s): 34736511, 824206362 Code(s): O62.1 - SECONDARY UTERINE INERTIA Status: Acute Current Visit: Yes (4) delivery delivered SNOMED Code(s): 694263858 Code(s): O82 - ENCOUNTER FOR DELIVERY WITHOUT INDICATION Status: Acute Current Visit: Yes (5) Chorioamnionitis in third trimester SNOMED Code(s): 39303550, 62304677 Code(s): O41.1230 - CHORIOAMNIONITIS, THIRD TRIMESTER, NOT APPLICABLE OR UNSP Status: Acute Current Visit: Yes Qualifiers: Fetus number: single or unspecified fetus Qualified Code(s): O41.1230 - Chorioamnionitis, third trimester, not applicable or unspecified (6) macrosomia SNOMED Code(s): 55844546 Code(s): O36.60X0 - MATERNAL CARE FOR EXCESS GROWTH, UNSP TRIMESTER, UNSP Status: Acute Current Visit: Yes Qualifiers: Fetus number: single or unspecified fetus (7) History of depression SNOMED Code(s): 455923223 Code(s): Z87.59 - PERSONAL HISTORY OF COMP OF PREG, CHLDBRTH AND THE PUERP; Z86.59 - PERSONAL HISTORY OF OTHER MENTAL AND BEHAVIORAL DISORDERS Status: Acute Current Visit: Yes - Problem List Review Problem List Initiated/Reviewed/Updated: No - Plan Plan:: Sent RX for Escitalopram 5 mg daily to [facility] disp 30 Refill 1 will get Probiotics as well at [facility]. Patient seen by me and examined by me.
[2021-02-12] MEDS: Prenatal Multivitamin with Calcium/Folic Acid/Iron Tab PO SCH (08:19)
[2021-02-12] MEDS: Docusate Sodium 100 MG Cap PO SCH (08:19)
--- NOTE | 2021-02-12 08:31 | PCM48HPAN ---
Post Anesthesia Note - EVALUATION WITHIN 48HRS OF ANESTHETIC Vital Signs in Normal Range: Yes Patient Participated in Evaluation: Yes Respiratory Function Stable: Yes Airway Patent: Yes Cardiovascular Function Stable: Yes Hydration Status Stable: Yes Pain Control Satisfactory: Yes Nausea and Vomiting Control Satisfactory: Yes Mental Status Recovered: Yes Vital Signs: Last Vital Signs Temp 98.2 F 02/12/21 08:24 Pulse 105 H 02/12/21 08:24 Resp 16 02/12/21 08:24 BP 107/65 02/12/21 08:24 Pulse Ox 95 02/12/21 08:24 - COMMENTS/OBSERVATIONS Free Text/Narrative:: no complaints
[2021-02-12] MEDS: Acetaminophen 325 MG Tab PO PRN (19:24)
[2021-02-12] MEDS ORDERED: Ibuprofen 600 MG Tab PO PRN (20:30)
[2021-02-12] MEDS: Ibuprofen 600 MG Tab PO PRN (20:56)
[2021-02-13] MEDS: Ibuprofen 600 MG Tab PO PRN ×5 (01:13→22:18)
[2021-02-13] MEDS: Docusate Sodium 100 MG Cap PO SCH ×3 (01:15→20:20)
[2021-02-13] MEDS: Prenatal Multivitamin with Calcium/Folic Acid/Iron Tab PO SCH (09:23)
[2021-02-13] MEDS: Acetaminophen 325 MG Tab PO PRN ×3 (09:23→20:20)
--- NOTE | 2021-02-13 10:24 | PCM.SN.2 ---
- Free Text/Narrative Note: Afebrile, incision normal, no leg pain or cramping, no heavy vaginal bleeding. Probably dismiss tomorrow.
[2021-02-14] MEDS: Acetaminophen 325 MG Tab PO PRN ×3 (00:38→08:37)
[2021-02-14] MEDS: Ibuprofen 600 MG Tab PO PRN ×3 (02:26→10:32)
[2021-02-14] MEDS: Docusate Sodium 100 MG Cap PO SCH (08:37)
[2021-02-14] MEDS: Prenatal Multivitamin with Calcium/Folic Acid/Iron Tab PO SCH (08:37)
[2021-02-14 09:46] VITALS: BP 122/72; PULSE 93
--- NOTE | 2021-02-14 10:27 | PCM.DCSUM1 ---
Discharge Summary - Hospital Course Free Text/Narrative:: [facility] Post-Op/Procedure Note Patient Name: NESHA MAURO Date of : 88 Patient Status: Inpatient Attending Provider: Jose Delatorre Date: 02/11/21 21:17 Initialization Date: 02/11/21 21:17 - General Post-Op/Procedure Note Date of Surgery/Procedure: 02/11/21 Operative Procedure(s): Primary section for arrest of dilation at 5 cm with suspected macrosomia and new onset chorioamnionitis Findings: Live male delivered in vertex presentation at 19:51, weight of 4430 g (9 pounds 12.3 ounces). Apgars of 8 and 9. Overall normal-appearing uterus, bilateral fallopian tubes and ovaries. Pre Op Diagnosis: 39 weeks gestational age, arrest of dilation at 5 cm, suspected macrosomia of , chorioamnionitis Post-Op Diagnosis: Same Anesthesia Technique: Epidural Primary Surgeon: Jose Delatorre Anesthesia Provider: Deysi Germain Airline Managerial Supervisor: Key Randolph Airline Managerial Supervisor: Riccardo Guillory (MS4) Reason Airline Managerial Supervisor Was Necessary: Patient safety and reduction of morbidity and mortality Role of Airline Managerial Supervisor: Retraction for visualization Pathology: None Fluid Replacement, Intraop: 1,300 Output, Urine Amount: 150 EBL in mLs: 1,000 Complications: None Condition: Good Free Text/Narrative:: Intake & Output 02/11/21 02/11/21 02/11/21 06:59 14:59 22:59 Intake Total 1120 Output Total 150 Balance 1120 -150 Length of procedure: 65 minutes Procedure in Detail: The patient was seen in labor and delivery room #31 and the risks, benefits and complications were discussed with the patient given her arrest of dilation at 5 cm with suspected macrosomia and new onset chorioamnionitis based on maternal fever of 100.9 F and tachycardia. The patient desired to proceed with section and appropriate consents were signed. The patient was taken to operating room #1. A Time Out was held and the patient was identified using 2 identifiers and the procedure was confirmed. The patient was given additional anesthesia through her epidural and was placed in dorsal supine position with leftward tilt. She was given 2 g Ancef, gentamicin 500 mg IV and clindamycin 900 mg IV for antibiotic prophylaxis. The patient was prepped and draped in the usual sterile manner. The abdominal skin was tested and the epidural anesthesia was found to be adequate. The skin was injected with 0.5% marcaine for local anesthesia. A Pfannenstiel skin incision was made and carried down through the subcutaneous tissue to the fascia with the scapel. The fascia was nicked in the midline using a scalpel and the fascial incision was extended transversely with Mcnally scissors. The inferior aspect of the fascia was grasped with Alfonso clamps and tented upwards. The fascia was from the underlying rectus muscle bluntly and sharply with Mcnally scissors. Attention was then turned to the superior aspect of the fascia and was grasped using Alfonso clamps and tented upwards. The underlying rectus muscle was dissected off bluntly and sharply with Mcnally scissors. The peritoneum was identified and entered bluntly. The bladder blade was inserted and the lower uterine segment was identified. A low transverse uterine incision was made sharply with a scalpel and extended laterally bluntly. The infant's head was brought to the uterine incision, the bladder blade was removed and the infant was delivered atraumatically. On 02/11/2021 a live male infant was delivered in vertex position at 19:51, wt of 4430 grams, 9 pounds and 12.3 ounces. APGARS were 8 & 9. The nose and mouth were suctioned with bulb suction, the cord was doubly clamped and cut and was transferred to the awaiting pediatric nurse. The placenta was removed intact and appeared normal with a three vessel cord. The uterus was exteriorized and the uterine cavity was cleaned using lap sponges. The hysterotomy was closed with a running locked suture of 0-Vicryl. A second suture of 0-Vicryl was used to imbricate the hysterotomy. The hysterotomy was noted to have some bleeding near the right edge and several lkwgst-[id number] sutures with 0 Vicryl were placed in this area to stop the bleeding. Hemostasis was noted after 2 qukphs-ba-ilniz sutures were placed. The uterus, tubes and ovaries appeared overall normal. The uterus was then returned into the abdominal cavity. The hysterotomy was noted to remain hemostatic inside the abdominal cavity. The fascia was noted to be hemostatic and the fascia was then reapproximated with running sutures of 0-Vicryl. The subcutaneous fat was reapproximated using 0 Vicryl. The skin was reapproximated using 4-0 Monocryl and Dermabond glue was applied over the incision. Instrument, sponge, and needle counts were correct prior to the abdominal closure and at the conclusion of the case. HPI Initial Comments: [facility] Post-Op/Procedure Note Patient Name: NESHA MAURO Date of : 88 Patient Status: Inpatient Attending Provider: Jose Delatorre Date: 02/11/21 21:17 Initialization Date: 02/11/21 21:17 - General Post-Op/Procedure Note Date of Surgery/Procedure: 02/11/21 Operative Procedure(s): Primary section for arrest of dilation at 5 cm with suspected macrosomia and new onset chorioamnionitis Findings: Live male infant delivered in vertex presentation at 19:51, weight of 4430 g (9 pounds 12.3 ounces). Apgars of 8 and 9. Overall normal-appearing uterus, bilateral fallopian tubes and ovaries. Pre Op Diagnosis: 39 weeks gestational age, arrest of dilation at 5 cm, suspected macrosomia of , chorioamnionitis Post-Op Diagnosis: Same Anesthesia Technique: Epidural Primary Surgeon: Jose Delatorre Anesthesia Provider: Deysi Germain Airline Managerial Supervisor: Key Randolph Airline Managerial Supervisor: Riccardo Guillory (MS4) Reason Airline Managerial Supervisor Was Necessary: Patient safety and reduction of morbidity and mortality Role of Airline Managerial Supervisor: Retraction for visualization Pathology: None Fluid Replacement, Intraop: 1,300 Output, Urine Amount: 150 EBL in mLs: 1,000 Complications: None Condition: Good Free Text/Narrative:: Intake & Output 02/11/21 02/11/21 02/11/21 06:59 14:59 22:59 Intake Total 1120 Output Total 150 Balance 1120 -150 Length of procedure: 65 minutes Procedure in Detail: The patient was seen in labor and delivery room #31 and the risks, benefits and complications were discussed with the patient given her arrest of dilation at 5 cm with suspected macrosomia and new onset chorioamnionitis based on maternal fever of 100.9 F and tachycardia. The patient desired to proceed with section and appropriate consents were signed. The patient was taken to operating room #1. A Time Out was held and the patient was identified using 2 identifiers and the procedure was confirmed. The patient was given additional anesthesia through her epidural and was placed in dorsal supine position with leftward tilt. She was given 2 g Ancef, gentamicin 500 mg IV and clindamycin 900 mg IV for antibiotic prophylaxis. The patient was prepped and draped in the usual sterile manner. The abdominal skin was tested and the epidural anesthesia was found to be adequate. The skin was injected with 0.5% marcaine for local anesthesia. A Pfannenstiel skin incision was made and carried down through the subcutaneous tissue to the fascia with the scapel. The fascia was nicked in the midline using a scalpel and the fascial incision was extended transversely with Mcnally scissors. The inferior aspect of the fascia was grasped with Alfonso clamps and tented upwards. The fascia was from the underlying rectus muscle bluntly and sharply with Mcnally scissors. Attention was then turned to the superior aspect of the fascia and was grasped using Alfonso clamps and tented upwards. The underlying rectus muscle was dissected off bluntly and sharply with Mcnally scissors. The peritoneum was identified and entered bluntly. The bladder blade was inserted and the lower uterine segment was identified. A low transverse uterine incision was made sharply with a scalpel and extended laterally bluntly. The 's head was brought to the uterine incision, the bladder blade was removed and the was delivered atraumatically. On 02/11/2021 a live male infant was delivered in vertex position at 19:51, wt of 4430 grams, 9 pounds and 12.3 ounces. APGARS were 8 & 9. The nose and mouth were suctioned with bulb suction, the cord was doubly clamped and cut and infant was transferred to the awaiting pediatric nurse. The placenta was removed intact and appeared normal with a three vessel cord. The uterus was exteriorized and the uterine cavity was cleaned using lap sponges. The hysterotomy was closed with a running locked suture of 0-Vicryl. A second suture of 0-Vicryl was used to imbricate the hysterotomy. The hysterotomy was noted to have some bleeding near the right edge and several cnbmni-dy-bmrru sutures with 0 Vicryl were placed in this area to stop the bleeding. Hemostasis was noted after 2 ckrlhy-lz-xynrv sutures were placed. The uterus, tubes and ovaries appeared overall normal. The uterus was then returned into the abdominal cavity. The hysterotomy was noted to remain hemostatic inside the abdominal cavity. The fascia was noted to be hemostatic and the fascia was then reapproximated with running sutures of 0-Vicryl. The subcutaneous fat was reapproximated using 0 Vicryl. The skin was reapproximated using 4-0 Monocryl and Dermabond glue was applied over the incision. Instrument, sponge, and needle counts were correct prior to the abdominal closure and at the conclusion of the case. Brief History: [facility] . Post-Op/Procedure Note. [facility]: [id number]. Date of : 88Patient Status: Inpatient. Attending Provider: Jose Delatorre JAccount Number: [id number]. Date: 02/11/21 21:17Initialization Date: 02/11/21 21:17. - General Post-Op/Procedure Note. Date of Surgery/Procedure: 02/11/21. Operative Procedure(s): Primary section for arrest of dilation at 5 cm with suspected macrosomia and new onset chorioamnionitis. Findings: Live male delivered in vertex presentation at 19:51, weight of 4430 g (9 pounds 12.3 ounces). Apgars of 8 and 9. Overall normal-appearing uterus, bilateral fallopian tubes and ovaries. Pre Op Diagnosis: 39 weeks gestational age, arrest of dilation at 5 cm, suspected macrosomia of infant, chorioamnionitis. Post-Op Diagnosis: Same. Anesthesia Technique: Epidural. Primary Surgeon: Jose Delatorre. Anesthesia Provider: Deysi Germain. Airline Managerial Supervisor: Key Randolph. Airline Managerial Supervisor: Riccarod Guillory (MS4). Reason Airline Managerial Supervisor Was Necessary: Patient safety and reduction of morbidity and mortality. Role of Airline Managerial Supervisor: Retraction for visualization. Pathology: None. Fluid Replacement, Intraop: 1,300. Output, Urine Amount: 150. EBL in mLs: 1,000. Complications: None. Condition: Good. Free Text/Narrative:: Intake & Output. 02/11/2103/. 06:5914:[id number]:[id number]. Intake [id number]. Output [id number]. [id number]. Length of procedure: 65 minutes. Procedure in Detail: The patient was seen in labor and delivery room #31 and the risks, benefits and complications were discussed with the patient given her arrest of dilation at 5 cm with suspected macrosomia and new onset chorioamnionitis based on maternal fever of 100.9 F and tachycardia. The patient desired to proceed with section and appropriate consents were signed. The patient was taken to operating room #1. A Time Out was held and the patient was identified using 2 identifiers and the procedure was confirmed. The patient was given additional anesthesia through her epidural and was placed in dorsal supine position with leftward tilt. She was given 2 g Ancef, gentamicin 500 mg IV and clindamycin 900 mg IV for antibiotic prophylaxis. The patient was prepped and draped in the usual sterile manner. The abdominal skin was tested and the epidural anesthesia was found to be adequate. The skin was injected with 0.5% marcaine for local anesthesia. A Pfannenstiel skin incision was made and carried down through the subcutaneous tissue to the fascia with the scapel. The fascia was nicked in the midline using a scalpel and the fascial incision was extended transversely with Mcnally scissors. The inferior aspect of the fascia was grasped with Alfonso clamps and tented upwards. The fascia was from the underlying rectus muscle bluntly and sharply with Mcnally scissors. Attention was then turned to the superior aspect of the fascia and was grasped using Alfonso clamps and tented upwards. The underlying rectus muscle was dissected off bluntly and sharply with Mcnally scissors. The peritoneum was identified and entered bluntly. The bladder blade was inserted and the lower uterine segment was identified. A low transverse uterine incision was made sharply with a scalpel and extended laterally bluntly. The 's head was brought to the ut erine incision, the bladder blade was removed and the infant was delivered atraumatically. On 02/11/2021 a live male infant was delivered in vertex position at 19:51, wt of 4430 grams, 9 pounds and 12.3 ounces. APGARS were 8 & 9. The nose and mouth were suctioned with bulb suction, the cord was doubly clamped and cut and infant was transferred to the awaiting pediatric nurse. The placenta was removed intact and appeared normal with a three vessel cord. The uterus was exteriorized and the uterine cavity was cleaned using lap sponges. The hysterotomy was closed with a running locked suture of 0-Vicryl. A second suture of 0-Vicryl was used to imbricate the hysterotomy. The hysterotomy was noted to have some bleeding near the right edge and several wvfxmz-ra-ktffd sutures with 0 Vicryl were placed in this area to stop the bleeding. Hemostasis was noted after 2 chlsoe-yk-zkrag sutures were placed. The uterus, tubes and ovaries appeared overall normal. The uterus was then returned into the abdominal cavity. The hysterotomy was noted to remain hemostatic inside the abdominal cavity. The fascia was noted to be hemostatic and the fascia was then reapproximated with running sutures of 0-Vicryl. The subcutaneous fat was reapproximated using 0 Vicryl. The skin was reapproximated using 4-0 Monocryl and Dermabond glue was applied over the incision. Instrument, sponge, and need le counts were correct prior to the abdominal closure and at the conclusion of the case. Diagnosis: Stroke: No - Discharge Data Discharge Date: 02/14/21 Discharge Disposition: Home, Self-Care 01 Condition: Good - Referral to Home Health Primary Care Physician: Jose Delatorre MD - Discharge Diagnosis/Problem(s) (1) 39 weeks gestation of SNOMED Code(s): 55807285 ICD Code: Z3A.39 - 39 WEEKS GESTATION OF Status: Acute Current Visit: Yes (2) Anxiety SNOMED Code(s): 40610517 ICD Code: F41.9 - ANXIETY DISORDER, UNSPECIFIED Status: Acute Current Visit: Yes (3) Arrest of dilation, delivered, current hospitalization SNOMED Code(s): 67883167, 123011429 ICD Code: O62.1 - SECONDARY UTERINE INERTIA Status: Acute Current Visit: Yes (4) delivery delivered SNOMED Code(s): 358163121 ICD Code: O82 - ENCOUNTER FOR DELIVERY WITHOUT INDICATION Status: Acute Current Visit: Yes (5) Chorioamnionitis in third trimester SNOMED Code(s): 18906916, 20164384 ICD Code: O41.1230 - CHORIOAMNIONITIS, THIRD TRIMESTER, NOT APPLICABLE OR UNSP Status: Acute Current Visit: Yes Qualifiers: Fetus number: single or unspecified fetus Qualified Code(s): O41.1230 - Chorioamnionitis, third trimester, not applicable or unspecified (6) macrosomia SNOMED Code(s): 40673665 ICD Code: O36.60X0 - MATERNAL CARE FOR EXCESS GROWTH, UNSP TRIMESTER, UNSP Status: Acute Current Visit: Yes Qualifiers: Fetus number: single or unspecified fetus (7) History of depression SNOMED Code(s): 138985925 ICD Code: Z87.59 - PERSONAL HISTORY OF COMP OF PREG, CHLDBRTH AND THE PUERP; Z86.59 - PERSONAL HISTORY OF OTHER MENTAL AND BEHAVIORAL DISORDERS Status: Acute Current Visit: Yes - Patient Summary/Data Operative Procedure(s) Performed: Primary section for arrest of dilation at 5 cm with suspected macrosomia and new onset chorioamnionitis Complications: None Consults: None Hospital Course: Uneventful - Patient Instructions Diet: Usual Diet as Tolerated Driving: Do Not Drive (2 weeks) Showering/Bathing: May Shower, No Tub Bathing/Swimming (X6 weeks) Wound/Incision Care: Keep Operative Site/Wound Site Clean and Dry Notify Provider of: Fever, Increased Pain, Swelling and Redness, Drainage, Nausea and/or Vomiting - Discharge Plan *PRESCRIPTION DRUG MONITORING PROGRAM REVIEWED*: Not Applicable *COPY OF PRESCRIPTION DRUG MONITORING REPORT IN PATIENT TAMRA: Not Applicable Prescriptions/Med Rec: Escitalopram [Lexapro] 5 mg PO DAILY #30 tab Home Medications: Home Meds Vits #93/Iron Fum/FA [ Formula Tablet] 1 tab PO DAILY 08/31/17 [History] Ferrous Sulfate [Iron] 325 mg PO DAILY 02/11/21 [History] Loratadine [Claritin] 10 mg PO DAILY 02/11/21 [History] Escitalopram [Lexapro] 5 mg PO DAILY #30 tab 02/12/21 [Rx] Acetaminophen [Tylenol] 650 mg PO Q6H PRN tablet 02/14/21 [Rx] Docusate Sodium [Colace] 100 mg PO BID cap 02/14/21 [Rx] Ibuprofen [Motrin] 600 mg PO Q6H PRN tablet 02/14/21 [Rx] Patient Handouts: Depression, Breast Pumping Tips, Baby Blues, and Self-Care, Care After Delivery, Anxiety Referrals: Shaquille Mccann MD [Physician] - - Discharge Summary/Plan Comment DC Time >30 min.: No - Patient Data Vitals - Most Recent: Last Vital Signs Temp 98.1 F 02/14/21 09:39 Pulse 93 02/14/21 09:39 Resp 14 02/14/21 09:39 BP 122/72 02/14/21 09:39 Pulse Ox 98 02/14/21 09:39 Weight - Most Recent: 220 lb 12.8 oz Med Orders - Current: Current Medications Acetaminophen (Acetaminophen 325 Mg Tab) 650 mg PO Q4H PRN PRN Reason: Pain Last Admin: 02/14/21 08:37 Dose: 650 mg Documented by: Diphenhydramine HCl (Diphenhydramine 50 Mg/Ml Sdv) 25 mg IVPUSH Q6H PRN PRN Reason: Itching or Nausea Docusate Sodium (Docusate Sodium 100 Mg Cap) 100 mg PO BID [facility] Last Admin: 02/14/21 08:37 Dose: 100 mg Documented by: Ephedrine Sulfate (Ephedrine 50 Mg/Ml Sdv) 5 mg IVPUSH SEECOMMENT PRN PRN Reason: Other Ibuprofen (Ibuprofen 600 Mg Tab) 600 mg PO Q4H PRN PRN Reason: Pain Last Admin: 02/14/21 06:27 Dose: 600 mg Documented by: Magnesium Hydroxide (Magnesium Hydroxide 400 Mg/5 Ml Susp 30 Ml Cup) 30 ml PO BEDTIME PRN PRN Reason: Constipation Naloxone HCl (Naloxone 0.4 Mg/Ml Sdv) 0.1 mg IVPUSH SEECOMMENT PRN PRN Reason: Respiratory Depression Prenat Multivit/Beltrami/Iron/Folic Ac ( Multivitamin With Calcium/Folic Acid/Iron Tab) 1 each PO DAILY [facility] Last Admin: 02/14/21 08:37 Dose: 1 each Documented by: Tramadol HCl (Tramadol 50 Mg Tab) 50 mg PO Q6H PRN PRN Reason: Pain (moderate 4-6) Last Admin: 02/12/21 00:05 Dose: 50 mg Documented by: Tramadol HCl (Tramadol 50 Mg Tab) 100 mg PO Q6H PRN PRN Reason: Pain (severe 7-10) Last Admin: 02/12/21 19:19 Dose: 100 mg Documented by: Discontinued Medications Bupivacaine HCl (Bupivacaine 0.5% 30 Ml Sdv) Confirm Administered Dose 30 ml .ROUTE .STK-MED ONE Stop: 02/11/21 19:15 Last Admin: 02/11/21 19:33 Dose: 20 ml Documented by: Bupivacaine HCl (Bupivacaine 0.25% 10 Ml Sdv) 10 ml .ROUTE .STK-MED ONE Stop: 02/11/21 17:01 Cefazolin Sodium (Cefazolin 1 Gm Vial) Confirm Administered Dose 2 gm .ROUTE .STK-MED ONE Stop: 02/11/21 19:08 Citric Acid/Sodium Citrate (Citric Acid/Sodium Citrate Solution 30 Ml Cup) 30 ml PO ONETIME ONE Stop: 02/11/21 19:08 Last Admin: 02/11/21 19:17 Dose: 30 ml Documented by: Citric Acid/Sodium Citrate (Citric Acid/Sodium Citrate Solution 30 Ml Cup) Confirm Administered Dose 30 ml .ROUTE .[employer]-MED ONE Stop: 02/11/21 19:14 Last Admin: 02/11/21 19:23 Dose: Not Given Documented by: Diphenhydramine HCl (Diphenhydramine 50 Mg/Ml Sdv) 25 mg IVPUSH Q6H PRN PRN Reason: pruritis Diphenhydramine HCl (Diphenhydramine 50 Mg/Ml Sdv) 25 mg IVPUSH Q6H PRN PRN Reason: pruritis Ephedrine Sulfate (Ephedrine 50 Mg/Ml Sdv) 5 mg IVPUSH ASDIRECTED PRN PRN Reason: Hypotension Ephedrine Sulfate (Ephedrine 50 Mg/Ml Sdv) Confirm Administered Dose 50 mg .ROUTE .STK-MED ONE Stop: 02/11/21 19:08 Ephedrine Sulfate (Ephedrine 50 Mg/Ml Sdv) 5 mg IVPUSH ASDIRECTED PRN PRN Reason: Hypotension Fentanyl (Fentanyl 100 Mcg/2 Ml Sdv) 100 mcg EPIDUR Q3H PRN PRN Reason: Pain Last Admin: 02/11/21 13:10 Dose: 100 mcg Documented by: Fentanyl (Fentanyl 100 Mcg/2 Ml Sdv) Confirm Administered Dose 100 mcg .ROUTE .STK-MED ONE Stop: 02/11/21 19:08 Fentanyl (Fentanyl 100 Mcg/2 Ml Sdv) 50 mcg IVPUSH Q20M PRN PRN Reason: Pain Fentanyl (Fentanyl 100 Mcg/2 Ml Sdv) Confirm Administered Dose 100 mcg .ROUTE .STK-MED ONE Stop: 02/11/21 20:11 Fentanyl/Bupivacaine HCl (Bupivacaine/Fentanyl/Ns 100 Ml Bag) 100 ml EPIDUR ASDIRECTED [facility] Last Admin: 02/11/21 13:10 Dose: 100 ml Documented by: Lactated Ringer's (Ringers, Lactated) 1,000 mls @ 100 mls/hr IV ASDIRECTED ROBBI Last Admin: 02/11/21 16:09 Dose: 100 mls/hr Documented by: Oxytocin/Lactated Ringer's (Pitocin In Lr 10 Units/1,000 Ml) 10 unit in 1,000 mls @ 500 mls/hr IV .CONTINUOUS ROBBI Oxytocin/Lactated Ringer's (Pitocin In Lr 10 Units/1,000 Ml) 10 unit in 1,000 mls @ 12 mls/hr IV TITRATE ROBBI; Protocol Last Titration: 02/11/21 19:05 Dose: 0 munits/min, 0 mls/hr Documented by: Lactated Ringer's (Ringers, Lactated) Confirm Administered Dose 2,000 mls @ as directed .ROUTE .[facility] ONE Stop: 02/11/21 19:08 Lactated Ringer's (Ringers, Lactated) 1,000 mls @ 125 mls/hr IV ASDIRECTED [facility] Cefazolin Sodium/Dextrose 2 gm (/ Premix) 50 mls @ 100 mls/hr IV ONETIME ONE Stop: 02/11/21 19:36 Last Admin: 02/11/21 22:20 Dose: Not Given Documented by: Gentamicin Sulfate 500 mg/ (Sodium Chloride) 112.5 mls @ 200 mls/hr IV ONETIME ONE Stop: 02/11/21 19:36 Last Admin: 02/11/21 22:20 Dose: Not Given Documented by: Clindamycin Phosphate 900 mg/ (Premix) 50 mls @ 100 mls/hr IV ONETIME ONE Stop: 02/11/21 19:36 Last Admin: 02/11/21 19:21 Dose: 100 mls/hr Documented by: Oxytocin/Lactated Ringer's (Pitocin In Lr 10 Units/1,000 Ml) 10 unit in 1,000 mls @ 100 mls/hr IV ASDIRECTED [facility]; Protocol Dextrose/Lactated Ringer's (Dextrose 5%-Lactated Ringers) 1,000 mls @ 125 mls/hr IV ASDIRECTED ROBBI Stop: 02/12/21 06:17 Last Admin: 02/11/21 22:56 Dose: 125 mls/hr Documented by: Oxytocin/Lactated Ringer's (Pitocin In Lr 10 Units/1,000 Ml) 10 unit in 1,000 mls @ 100 mls/hr IV .CONTINUOUS [facility] Cefazolin Sodium/Dextrose (Ancef 2 Gm/50 Ml) 50 mls @ 100 mls/hr IV ONETIME ONE Stop: 02/12/21 03:59 Last Admin: 02/12/21 03:44 Dose: 100 mls/hr Documented by: Clindamycin Phosphate 900 mg/ (Premix) 50 mls @ 100 mls/hr IV ONETIME ONE Stop: 02/12/21 03:59 Last Admin: 02/12/21 04:31 Dose: 100 mls/hr Documented by: Ibuprofen (Ibuprofen 600 Mg Tab) 600 mg PO Q6H PRN PRN Reason: mild pain or fever Ketorolac Tromethamine (Ketorolac 30 Mg/Ml Sdv) Confirm Administered Dose 30 mg .ROUTE .STK-MED ONE Stop: 02/11/21 19:08 Ketorolac Tromethamine (Ketorolac 30 Mg/Ml Sdv) 30 mg IVPUSH Q6H [facility] Stop: 02/12/21 14:31 Last Admin: 02/12/21 14:43 Dose: 30 mg Documented by: Lidocaine HCl (Lidocaine 1% 50 Ml Mdv) 50 ml INJECT ONETIME PRN PRN Reason: Breakthrough Pain Lidocaine/Epinephrine (Lidocaine 2% With Epinephrine 1:200,000 20 Ml Sdv) Confirm Administered Dose 20 ml .ROUTE .STK-MED ONE Stop: 02/11/21 19:08 Metoclopramide HCl (Metoclopramide 10 Mg/2 Ml Sdv) 10 mg IVPUSH ONETIME ONE Stop: 02/11/21 19:08 Last Admin: 02/11/21 19:18 Dose: 10 mg Documented by: Metoclopramide HCl (Metoclopramide 10 Mg/2 Ml Sdv) Confirm Administered Dose 10 mg .ROUTE .STK-MED ONE Stop: 02/11/21 19:13 Last Admin: 02/11/21 19:22 Dose: Not Given Documented by: Miscellaneous Medication (Phenylephrine Hcl In 0.9% Nacl 1 Mg/10 Ml Syringe) 0 mg IVPUSH ONETIME ONE Stop: 02/11/21 07:36 Last Admin: 02/11/21 14:37 Dose: 0.05 mg Documented by: Miscellaneous Medication (Phenylephrine Hcl In 0.9% Nacl 1 Mg/10 Ml Syringe) Confirm Administered Dose 1 mg .ROUTE .[employer] ONE Stop: 02/11/21 19:08 Miscellaneous Medication (Phenylephrine Hcl In 0.9% Nacl 1 Mg/10 Ml Syringe) Confirm Administered Dose 1 mg .ROUTE .[employer] ONE Stop: 02/11/21 20:31 Ondansetron HCl (Ondansetron 4 Mg/2 Ml Sdv) 4 mg IVPUSH ONETIME PRN PRN Reason: Nausea/Vomiting Ondansetron HCl (Ondansetron 4 Mg/2 Ml Sdv) Confirm Administered Dose 4 mg .ROUTE .[employer] ONE Stop: 02/11/21 19:08 Ondansetron HCl (Ondansetron 4 Mg/2 Ml Sdv) 4 mg IVPUSH ONETIME PRN PRN Reason: Nausea/Vomiting Oxytocin (Oxytocin 10 Units/1 Ml Sdv) Confirm Administered Dose 20 unit .ROUTE .[employer] ONE Stop: 02/11/21 19:08 Phenylephrine HCl (Phenylephrine/Normal Saline 100 Mcg/Ml 10 Ml Syringe) 0.1 mg IVPUSH Q10M PRN PRN Reason: Hypotension Phenylephrine HCl (Phenylephrine/Normal Saline 100 Mcg/Ml 10 Ml Syringe) 1 mg .ROUTE .[employer] ONE Stop: 02/11/21 17:01 Sodium Chloride (Sodium Chloride 0.9% 10 Ml Syringe) 10 ml FLUSH ASDIRECTED PRN PRN Reason: Keep Vein Open Sodium Chloride (Sodium Chloride 0.9% 10 Ml Syringe) 10 ml FLUSH ASDIRECTED PRN PRN Reason: Keep Vein Open
== END 2021-02-14 11:43 | disposition home or self-care (01) | DRG 540 ==
LOC: JD.OB 07:08 → OBSVTOIN 19:51
PROVIDERS: ADMIT Obstetrics & Gynecology; ATTEND Obstetrics & Gynecology
PROC: 10D00Z1 Extraction of Products of Conception, Low, Open Approach (ICD-10-PCS; principal; 2021-02-11)
PROC: 10H07YZ Insertion of Other Device into Products of Conception, Via Natural or Artificial Opening (ICD-10-PCS; 2021-02-11)
PROC: 10907ZC Drainage of Amniotic Fluid, Therapeutic from Products of Conception, Via Natural or Artificial Opening (ICD-10-PCS; 2021-02-11)
PROC: 3E033VJ Introduction of Other Hormone into Peripheral Vein, Percutaneous Approach (ICD-10-PCS; 2021-02-11)
PROC: 3E0R3BZ Introduction of Anesthetic Agent into Spinal Canal, Percutaneous Approach (ICD-10-PCS; 2021-02-11)
PROC: 00HU33Z Insertion of Infusion Device into Spinal Canal, Percutaneous Approach (ICD-10-PCS; 2021-02-11)
DX: O36.63X0 Maternal care for excessive fetal growth, third trimester, not applicable or unspecified (principal); Z37.0 Single live birth; O62.1 Secondary uterine inertia; O41.1230 Chorioamnionitis, third trimester, not applicable or unspecified; O99.62 Diseases of the digestive system complicating childbirth; K21.9 Gastro-esophageal reflux disease without esophagitis; O76 Abnormality in fetal heart rate and rhythm complicating labor and delivery; O99.344 Other mental disorders complicating childbirth; F41.9 Anxiety disorder, unspecified; Z20.822 Contact with and (suspected) exposure to COVID-19; Z88.5 Allergy status to narcotic agent; Z91.09 Other allergy status, other than to drugs and biological substances; Z3A.39 39 weeks gestation of pregnancy
CPT/HCPCS: 01967; 01968; 36415; 51702; 59025; 85025; 86592; 86850; 86900; 86901; A9270-GY; J0690; J1885; J2370; J2405; J2590; J2765; J3010; J3490; J7120; J7121; U0002

== ENCOUNTER 2022-08-16 07:15 | Day surgery (SDC) | payer BC ==
[~2022-08-16 07:15] MED LIST changes: -FLU Vacc QS2019-20(6MOS+)/PF 60 MCG/0.5 ML SYRINGE IM ONE; -Lactated Ringers 1,000 ML IV SCH; +Sodium Chloride 0.9% 10 ML Syringe FLUSH SCH
[2022-08-16] MEDS: Lactated Ringers 1,000 ML IV SCH ×3 (07:35→11:55)
[2022-08-16] MEDS ORDERED: Propofol 200 MG/20 ML SDV ONE (08:39)
[2022-08-16] MEDS ORDERED: fentaNYL 250 MCG/5 ML SDV ONE (08:39)
[2022-08-16] MEDS ORDERED: Midazolam 1 MG/ML 2 ML SDV ONE (08:39)
[2022-08-16] MEDS ORDERED: Ondansetron 4 MG/2 ML SDV ONE (08:39)
[2022-08-16] MEDS ORDERED: Lidocaine 1% 4 ML ONE (08:39)
[2022-08-16] MEDS ORDERED: ceFAZolin 2 GM Vial ONE (09:02)
[2022-08-16] MEDS ORDERED: Ondansetron 4 MG/2 ML SDV IVPUSH PRN ×2 (09:05→09:27)
[2022-08-16] MEDS ORDERED: Ketorolac 30 MG/ML SDV ONE (09:18)
[2022-08-16] MEDS: fentaNYL 100 MCG/2 ML SDV IVPUSH PRN ×2 (10:04→10:14)
[2022-08-16] MEDS ORDERED: Acetaminophen/oxyCODONE 325-5 MG Tab PO PRN (11:18)
[2022-08-16 12:43] VITALS: BP 110/75; PULSE 76
[2022-08-16] MEDS ORDERED: Ketorolac 30 MG/ML SDV IVPUSH SCH (16:00)
[2022-08-16] MEDS ORDERED: Ibuprofen 600 MG Tab PO PRN (22:00)
== END 2022-08-16 12:20 | disposition home or self-care (01) ==
LOC: JD.SDS 07:15
PROVIDERS: ATTEND Obstetrics & Gynecology
DX: N84.0 Polyp of corpus uteri (principal); F41.9 Anxiety disorder, unspecified; K21.9 Gastro-esophageal reflux disease without esophagitis; F32.A Depression, unspecified; E66.9 Obesity, unspecified; Z79.899 Other long term (current) drug therapy; Z98.890 Other specified postprocedural states; Z88.8 Allergy status to other drugs, medicaments and biological substances; Z91.09 Other allergy status, other than to drugs and biological substances; Z91.018 Allergy to other foods; Z68.34 Body mass index [BMI] 34.0-34.9, adult
CPT/HCPCS: 36415; 58558; 81025; 85025; J0690; J1885; J2250; J2405; J2704; J3010; J7120; 00952

== ENCOUNTER 2023-02-21 07:46 | Day surgery (SDC) | payer BC ==
[~2023-02-21 07:46] MED LIST changes: +Dexamethasone 4 MG/ML 5 ML MDV ONE; +Dexmedetomidine 200 MCG/2 ML SDV ONE; +Ketorolac 30 MG/ML SDV ONE; +Lidocaine 1% 5 ML VIAL ONE; +Midazolam 1 MG/ML 2 ML SDV ONE; +Ondansetron 4 MG/2 ML SDV ONE; +Propofol 200 MG/20 ML SDV ONE; +Rocuronium 50 MG/5 ML Vial ONE; +Sodium Chloride 0.9% 100 ML ONE; +diphenhydrAMINE 50 MG/ML SDV ONE; +fentaNYL 250 MCG/5 ML SDV ONE
[2023-02-21] MEDS ORDERED: ceFAZolin 2 GM Vial ONE (07:47)
[2023-02-21] MEDS: Lactated Ringers 1,000 ML IV SCH ×2 (08:00→12:00)
[2023-02-21] MEDS ORDERED: Scopolamine 1.5 MG Transdermal Patch TOP ONE (08:01)
[2023-02-21] MEDS ORDERED: Bupivacaine 0.5% 30 ML SDV ONE (08:53)
[2023-02-21] MEDS ORDERED: Bupivacaine 0.25%/EPINEPHrine 1:200,000 30 ML SDV ONE (08:53)
[2023-02-21] MEDS ORDERED: Citric Acid/Sodium Citrate Solution 30 ML Cup PO ONE (09:00)
[2023-02-21] MEDS ORDERED: Famotidine 20 MG/2 ML SDV IVPUSH ONE (09:00)
[2023-02-21] MEDS ORDERED: Lactated Ringers 1,000 ML ONE (09:21)
[2023-02-21] MEDS ORDERED: fentaNYL 100 MCG/2 ML SDV IVPUSH PRN (09:35)
[2023-02-21] MEDS ORDERED: Sugammadex Sodium 200 MG/2 ML VIAL ONE (09:35)
[2023-02-21] MEDS ORDERED: Ondansetron 4 MG/2 ML SDV IVPUSH PRN ×2 (09:35→09:58)
[2023-02-21] MEDS ORDERED: Acetaminophen/HYDROcodone 325-5 MG Tab PO PRN (09:58)
[2023-02-21] MEDS ORDERED: Acetaminophen/oxyCODONE 325-5 MG Tab PO PRN (11:00)
[2023-02-21] MEDS ORDERED: Ketorolac 30 MG/ML SDV IVPUSH SCH (14:00)
[2023-02-21 15:13] VITALS: BP 106/76; PULSE 89
[2023-02-21] MEDS ORDERED: Ibuprofen 600 MG Tab PO PRN (20:00)
== END 2023-02-21 13:45 | disposition home or self-care (01) ==
LOC: JD.SDS 07:46
PROVIDERS: ATTEND Obstetrics & Gynecology
DX: N84.0 Polyp of corpus uteri (principal); N72 Inflammatory disease of cervix uteri; N73.6 Female pelvic peritoneal adhesions (postinfective); F41.9 Anxiety disorder, unspecified; F32.A Depression, unspecified; K21.9 Gastro-esophageal reflux disease without esophagitis; Z88.5 Allergy status to narcotic agent; Z91.048 Other nonmedicinal substance allergy status; Z79.899 Other long term (current) drug therapy; Z79.84 Long term (current) use of oral hypoglycemic drugs
CPT/HCPCS: 36415; 58262; 81025; 86850; 86900; 86901; A9270; J0690; J1100; J1200; J1885; J2250; J2405; J2704; J3010; J3490; J7120; 00944

== ENCOUNTER 2024-07-15 18:52 | Emergency (ER) | payer BC ==
[2024-07-15 22:31] VITALS: BP 123/79; PULSE 84
== END 2024-07-15 21:00 | disposition home or self-care (01) ==
LOC: JD.ED 18:52
DX: S06.0X0A Concussion without loss of consciousness, initial encounter (principal); S63.502A Unspecified sprain of left wrist, initial encounter; S40.011A Contusion of right shoulder, initial encounter; S01.83XA Puncture wound without foreign body of other part of head, initial encounter; E66.9 Obesity, unspecified; Z79.84 Long term (current) use of oral hypoglycemic drugs; Z79.899 Other long term (current) drug therapy; Z88.8 Allergy status to other drugs, medicaments and biological substances; Z91.018 Allergy to other foods; Z91.048 Other nonmedicinal substance allergy status; V18.0XXA Pedal cycle driver injured in noncollision transport accident in nontraffic accident, initial encounter
CPT/HCPCS: 70450; 70450-26; 70486; 70486-26; 73030-26-RT; 73030-RT; 73110-26-LT; 73110-LT; 99284

== ENCOUNTER 2024-10-03 21:12 | Emergency (ER) | payer BC ==
[2024-10-03 21:26] VITALS: BP 118/81; PULSE 90
[2024-10-03] MEDS: Proparacaine 0.5% Ophth Soln 15 ML Bottle EYELF ONE (22:00)
[2024-10-03] MEDS: Fluorescein 1 MG Ophth Strip EYELF ONE (22:00)
[2024-10-03] MEDS: Ofloxacin 0.3% Ophth Soln 5 ML Bottle ONE (22:31)
== END 2024-10-03 22:34 | disposition home or self-care (01) ==
LOC: JD.ED 21:12
DX: T54.91XA Toxic effect of unspecified corrosive substance, accidental (unintentional), initial encounter (principal); E66.9 Obesity, unspecified; Z68.29 Body mass index [BMI] 29.0-29.9, adult; Z79.899 Other long term (current) drug therapy; Z88.5 Allergy status to narcotic agent; Z91.048 Other nonmedicinal substance allergy status; Z91.018 Allergy to other foods; X58.XXXA Exposure to other specified factors, initial encounter
CPT/HCPCS: 99283; A9270-GY; J3490